=== PATIENT | female | born 1960 | race Caucasian/White ===

== ENCOUNTER 2017-08-04 15:05 | Emergency (ER) | payer OTHER, SELFPAY ==
[2017-08-04 15:37] VITALS: BP 185/110; PULSE 91; RESP 20; TEMP 36.9; O2SAT 97; BMI 34.0
--- NOTE | 2017-08-04 16:14 | HMH.EDUTC ---
[facility] [place] Disposition Clinical Impression: Oral thrush Disposition: Home, Self-Care Condition on Discharge: Good Instructions: DI for Thrush Additional Instructions: Read attached education Mouth rinse as ordered. Lidocaine rinse as needed for pain If no improvement over the next several days or at anytime, worse, follow up immediately Prescriptions: Lidocaine HCl [Lidocaine 2% viscous solution 15mL UDC] 2.5 ml PO QID PRN #60 ml PRN Reason: Mouth Irritation Nystatin [Nystatin Susp 500,000 Units/5mL Udc] 5 ml PO QID #200 ml Referrals: Ernesto Vega MD [Primary Care Provider] - (ANY new or worsening symptom or no improvement over the next 5-7 days AND call tomorrow to schedule follow up to discuss significantly elevated blood pressure. ER for any chest pain, headache, vision changes, weakness.) Time of Disposition: 16:32 Medical Decision Making Vital Signs: 08/04/17 15:37 Temperature 98.4 F Temperature Source Temporal Artery Scan Pulse Rate [Right Radial] 91 H Respiratory Rate 20 Blood Pressure [Right Arm] 185/110 Blood Pressure Mean [Right Arm] 135 Blood Pressure Source [Right Arm] Automatic Cuff Blood Pressure Position [Right Arm] Sitting 02 Sat by Pulse Oximetry 97 Oxygen Delivery Method Room Air - Jeffrey Inquiry Pt receiving controlled substance: No [facility] [place] HPI - General Stated complaint: Tongue hurts Time Seen by Provider: 08/04/17 16:14 Mode of Arrival: Family Vehicle Source of Information: Patient Limitations: No Limitations Description of Symptoms (Recalled from Triage Doc. by RN): PT C/O OF TONGUE SORENESS AND WHITE PATCHES. PT DENIES SORE THROAT OR TONGUE TRAUMA. HEENT Symptoms (Recalled from RN notes): Yes (TONGUE PAIN AND WHITE PATCHES) Resp Symptoms (Recalled from RN notes): No Skin Symptoms (Recalled from RN notes): No MS Symptoms (Recalled from RN notes): No Functional Status (Recalled from RN notes): NA - History of Present Illness Provider Complaint: c/o tongue burning and white patches. First noticed very mild around one mouth ago. Has been slowly getting worse. Thick white covering at times but since brushed aware with toothbrush, wasn't too concerned. The longer it has been present, the more uncomfortable her tongue as become. Now painful to eat. Hasn't taken or tried anything. No one with same symptoms. Denies any changes to medication. No antibiotics or inhalers. Hx of significantly elevated BP. States taking meds. No symptoms. - Related Data Home Medications Medication Instructions Recorded Confirmed Gabapentin [Gabapentin 100mg Cap] 100 mg PO DAILY 08/04/17 08/04/17 Omeprazole [Omeprazole 20mg 20 mg PO DAILY 08/04/17 08/04/17 Capsule] Propranolol HCl [Inderal 40mg 40 mg PO DAILY 08/04/17 08/04/17 Tablet] hydroCHLOROthiazide [HCTZ 25mg 25 mg PO DAILY 08/04/17 08/04/17 tab] Previous Rx's Medication Instructions Recorded Lidocaine HCl [Lidocaine 2% 2.5 ml PO QID PRN #60 ml 08/04/17 viscous solution 15mL UDC] Nystatin [Nystatin Susp 500,000 5 ml PO QID #200 ml 08/04/17 Units/5mL Udc] Allergies Allergy/AdvReac Type Severity Reaction Status Date / Time No Known Allergies Allergy Verified 08/04/17 15:15 - Worker's Comp Is this a Worker's Comp case?: No [facility] History I have reviewed the patient's past medical history: Yes Medical History: Reports:: Depression, Gastroesophageal Reflux Disease(GERD), Hypertension Denies:: Cancer, Diabetes Mellitus Type 1, Diabetes Mellitus Type 2, MRSA Other Medical History: Reports: Other (RLS) Laterality Cases: Bilateral: Tonsillectomy Other Surgeries: Yes: , Other (hysterectomy, pyloris stenosis, small bowel resection, tonsillectomy) Amputation: No - *Social History Smoking Status: Never smoker Alcohol Intake: never - Psychiatric History Expresses thoughts of harming self/others: None Suicide Plan Description: No Plan ROS Obtained: Yes Systems reviewed as appropriate & no additional
[2017-08-04 16:32] VITALS: BP 178/98; PULSE 66; RESP 20; TEMP 37.1; O2SAT 99
== END 2017-08-04 16:37 | disposition home or self-care (01) ==
PROVIDERS: Emergency Provider Nurse Practitioner Family; Family Provider Internal Medicine Adolescent Medicine; PCP Internal Medicine Adolescent Medicine
DX: B37.0 Candidal stomatitis (principal); K21.9 Gastro-esophageal reflux disease without esophagitis; I10 Essential (primary) hypertension; F32.9 Major depressive disorder, single episode, unspecified
CPT/HCPCS: 99201

== ENCOUNTER → 2017-10-03 10:16 | Outpatient (POV) | payer OTHER, SELFPAY | PROVIDERS: Family Provider Internal Medicine Adolescent Medicine; PCP Internal Medicine Adolescent Medicine; Visit Provider Dermatology | DX: Z00.00 Encounter for general adult medical examination without abnormal findings (principal) ==

== ENCOUNTER → 2017-10-30 13:31 | Outpatient (CLI) | payer OTHER, SELFPAY ==
[2017-10-30 15:15] LABS: Ferritin 7 ng/mL (8-388); Phosphorous 3.8 mg/dL (2.4-4.9)
[2017-10-31 08:26] LABS: Iron 68 ug/dL (27-159); Iron Saturation 14 % (15-55); UIBC 405 ug/dL (131-425)
[2017-10-31 14:49] LABS: Vitamin B12 379 pg/mL (232-1245)
== END ==
PROVIDERS: Visit Provider Internal Medicine Adolescent Medicine
DX: G25.81 Restless legs syndrome (principal); K14.0 Glossitis
CPT/HCPCS: 36415; 82607; 82728; 83550; 84100

== ENCOUNTER → 2018-05-06 15:17 | Outpatient (POV) | payer OTHER, SELFPAY | PROVIDERS: Visit Provider Dermatology | DX: Z00.00 Encounter for general adult medical examination without abnormal findings (principal) ==

== ENCOUNTER → 2018-09-26 16:56 | Outpatient (CLI) | payer OTHER, SELFPAY | PROVIDERS: PCP Internal Medicine Adolescent Medicine; Visit Provider Nurse Practitioner Family | DX: Z00.00 Encounter for general adult medical examination without abnormal findings (principal) ==

== ENCOUNTER → 2019-01-06 14:53 | Outpatient (CLI) | payer OTHER, SELFPAY ==
--- NOTE | 2019-01-06 15:10 | XR_ITS ---
XR chest 2V HISTORY: Hypertension ITS.REASON: HTN ORDERING PHYSICIAN: Jose Garcia MD PATIENT AGE: 58 years COMPARISON: 08/28/2016 FINDINGS: The cardiomediastinal silhouette and pulmonary vascularity are within normal limits. The lungs are clear without infiltrates, suspicious nodules, or pleural effusions. Comminuted fracture involves the left humeral head and neck. There is inferior dislocation of left humeral head. IMPRESSION: 1. No acute cardiac or pulmonary findings. 2. Comminuted fracture dislocation of left humeral head and neck
--- NOTE | 2019-01-06 15:10 | XR_ITS ---
EXAM: XR thoracic spine 2V HISTORY: Posttraumatic pain ITS.REASON: S/P FALL , PAIN Comparison: None FINDINGS: Normal alignment. There is a curvilinear lucency through the superior and posterior aspect of T6 possibly due to overlying artifact. Cannot exclude the possibility of a nondisplaced fracture. CT may further specificity if clinically warranted. No other significant anomalies are evident. IMPRESSION: Curvilinear lucency overlying the posterior and superior aspect of T6 which could be due to overlying artifact or nondisplaced fracture
--- NOTE | 2019-01-06 15:10 | XR_ITS ---
EXAM: XR lumbar spine 2-3V HISTORY: ITS.REASON: S/P FALL , PAIN ORDERING PHYSICIAN: Jose Garcia MD PATIENT AGE: 58 years COMPARISON: None FINDINGS: There is mild lumbar curvature convex left. No acute fracture or dislocation is evident. There is anterior angulation of the coccyx which appears old. IMPRESSION: No acute finding
[2019-01-06 15:15] LABS: Basophils % 0.3 % (0.1-2.0); Eosinophils # 0.2 K/mm3 (0.0-0.4); Eosinophils % 2.2 % (0.1-12.0); Hematocrit 36.6 % (37.0-47.0); Hemoglobin 11.1 g/dL (12.2-16.2); Lymphocytes # 1.5 K/mm3 (0.7-4.5); Lymphocytes % 18.6 % (10-50); Mean Corpuscular HGB Conc 30.5 g/dL (31.8-35.4); Mean Corpuscular Hemoglobin 25.5 pg (27.0-31.2); Mean Corpuscular Volume 83.6 fl (81-99); Mean Platelet Volume 9.6 fl (7.4-10.4); Monocytes # 0.5 K/mm3 (0.1-1.0); Monocytes % 6.7 % (1.7-9.3); Neutrophils # 5.7 K/mm3 (1.8-7.8); Neutrophils % 72.2 % (37.0-80.0); Platelet Count 315 K/mm3 (142-424); Red Blood Count 4.37 M/mm3 (4.20-5.40); Red Cell Distribution Width 15.3 % (11.5-17.5); White Blood Count 7.9 K/mm3 (4.8-10.8)
[2019-01-06 16:30] LABS: Anion Gap 10.3 mEq/L (5-15); Blood Urea Nitrogen 7 mg/dL (7-18); Carbon Dioxide 36 mmol/L (21.0-32.0); Chloride 99 mmol/L (98-107); Creatinine,Serum 0.82 mg/dL (0.55-1.02); Estimated Glomerular Filt Rate 72 ml/min (>60); GFR (African American) 87 ML/MIN (>60); Glucose 172 mg/dL (74-106); Potassium 3.3 mmoL/L (3.5-5.1); Sodium 142 mmol/L (136-145)
== END ==
PROVIDERS: PCP Internal Medicine Adolescent Medicine; Visit Provider Orthopaedic Surgery
DX: S42.292A Other displaced fracture of upper end of left humerus, initial encounter for closed fracture (principal)
CPT/HCPCS: 36415; 71046; 72070; 72100; 80048; 85025; 93005

== ENCOUNTER → 2019-01-07 15:29 | Outpatient (CLI) | payer OTHER, SELFPAY ==
--- NOTE | 2019-01-07 15:37 | CT_ITS ---
CT thoracic spine wo con INDICATION: Back pain following injury, possible fracture of T6 on plain films. ITS.REASON: evaluate for fracture; recommended by Dr Muñoz ORDERING PHYSICIAN: Jose Garcia MD PATIENT AGE: 58 years COMPARISON: None TECHNIQUE: Contrast Used: Oral Contrast: Axial images were obtained. Sagittal and coronal reformatted images are reviewed as well. All CT scans at the facility use one or more dose reduction, viz: automated exposure control, ma/kV adjustment per patient size (including targeted exams where dose is matched to indication, i.e. head), or iterative reconstruction technique. FINDINGS: No acute fracture or dislocation. Small marginal osteophytes are present on the right at T T5, T6, T7, and T8. There is osteophytes could have resulted in a mock line on the radiograph causing radiographic abnormality. No lytic or blastic change. No paraspinal mass or other significant anomalies. IMPRESSION: Degenerative changes, no acute fracture
--- NOTE | 2019-01-07 15:37 | XR_ITS ---
XR shoulder LT min 2V HISTORY: Follow-up fracture ITS.REASON: ap axillary views ORDERING PHYSICIAN: Jose Garcia MD PATIENT AGE: 58 years Comparison: 01/01/2019 FINDINGS: Comminuted and impacted fracture of the humeral head and neck once again noted with mild impaction of the humeral neck fracture fragments and mild displacement of the greater tuberosity. Previous chest x-ray showed subluxation of the left humeral head which is less apparent on today's exam. No evidence of dislocation. Axillary view is unremarkable. IMPRESSION: No change in the left humeral head and neck fracture. No evidence of dislocation.
== END ==
PROVIDERS: PCP Internal Medicine Adolescent Medicine; Visit Provider Orthopaedic Surgery
DX: S42.292A Other displaced fracture of upper end of left humerus, initial encounter for closed fracture (principal); M54.6 Pain in thoracic spine
CPT/HCPCS: 72128; 73030

== ENCOUNTER 2019-01-08 08:48 | Observation (INO) ==
--- NOTE | 2019-01-08 13:26 | Progress Note ---
[facility] Anesthesia Checklist - Patient Identification Patient Identification: Arm Band, Verbal (Name & ) - Structural Data Admitted From: Home Planned Operative Procedure/s: Left Shoulder ORIF Consent for Planned Operative Procedure(s) Verified: Yes Verified Documents: Surgical Consent, History and Physical - NPO Status Verified Time NPO: 21:30 - Chart Verification Results Verified: CBC, BMP - Additional verifications Anesthesia Reactions: No - Airway Assessment C-Spine Mobility Assessed: Yes TMJ Mobility Assessed: Yes Dentition: Poor Dentition (Missing teeth) - Neurological Assessment Level of Consciousness: Awake, Alert, Appropriate, Follows Commands Hx Seizures: No Numbness or tingling in extremities: No - Anesthesia Plan Anesthesia Risk discussed: Yes Anesthesia Plan: Verified ASA Class: III Anesthesia Type: General (With left ISB) [facility] History I have reviewed the patient's past medical history: Yes Medical History: Reports:: Depression, Gastroesophageal Reflux Disease(GERD), Hypertension Denies:: Cancer, Diabetes Mellitus Type 1, Diabetes Mellitus Type 2, Internal Pacemaker, Lung Disease, MRSA, Seizures *Have you ever received a pneumonia vaccine?: No *Have you received a flu vaccine this season?: Yes Other Medical History: Reports: Other. Denies: Blood Transfusion Reaction Comment:: Crohn's Laterality Cases: Bilateral: Tonsillectomy Other Surgeries: Yes: Colonoscopy, , Hysterectomy-Total, Hysterectomy- Partial, Other (hysterectomy, pyloris stenosis, small bowel resection, tonsillectomy). No: Pacemaker Amputation: No Fractures: No - *Social History Educational Level: Completed GED/General Educational Development Smoking Status: Never smoker Alcohol Intake: never Substance Use Type: former substance user Last Used Substance: unknown *Occupational Status:: employed Housing: house Household Members: spouse *Travel in the last 8 weeks: None - Psychiatric History Pschychiatric History:: Reports:: Depression Family Hx:: Other, Adopted
--- NOTE | 2019-01-08 20:15 | Progress Note ---
[facility] Anesthesia Record Part I Intake, IV Amount: 2,800 Estimated blood loss (mL): 250 Urine output (mL): 600 Blood Pressure: 155/90 SaO2: 96 Pulse Rate: 95 Respiratory Rate: 12 Temperature: 98 F Patient is:: Awake, Stable Stable to PACU at:: 20:10
--- NOTE | 2019-01-08 20:15 | Progress Note ---
[facility] Anesthesia Record Part II Discharge Time: 20:40 Destination: floor PACU nurse assessment reviewed?: Yes Patient Condition:: Good Anesthesia Complications:: None Swallowing reflex intact?: Yes Cyanosis?: No
--- NOTE | 2019-01-08 20:52 | Operative Note ---
Date of procedure: 01/08/19 Pre-op Diagnosis:: Closed valgus impacted 4 part proximal humerus fracture, left Post-op Diagnosis:: Same Procedure performed:: Open reduction internal fixation proximal humerus fracture, left Surgeon:: Jose Garcia MD BALLAST REGULATOR OPERATOR:: Rogers Farah Anesthesia: GETA, regional (Interscalene block) Estimated blood loss (mL): 250 Clinical Note:: Patient is a 58-year-old angfn-moyl-ceepewyb female, who sustained a closed, comminuted and displaced valgus impacted 4 part proximal humerus fracture after she tripped and fell about 1 week ago. Following evaluation in the office, including CT scan with 3-D reconstruction, the management options were discussed with the patient and her sister in detail. Given the fracture pattern with displacement and deformity, an open reduction and internal fixation is indicated to relieve pain and improve function. Following a detailed discussion about the management options including both nonsurgical and surgical, she and her family elected for an open reduction and internal fixation of the proximal humerus fracture with a locking plate. I have discussed the details of the procedure, risks and benefits and alternatives at length. Please refer to my office note for full details. Operative findings:: Comminuted and displaced valgus impacted 4 part fracture of the proximal humerus as noted on the preoperative imaging. Fracture was reduced satisfactorily and stabilized with a 3 hold proximal humerus locking plate and screws. ignificant void was noted in the humeral head from impaction after reducing and fixing the fracture.The gap at the fracture site was filled with Hydroset synthetic bone graft substitute. Operative note:: On the day of surgery the patient and her family met in the preoperative area and positively identified. I have again discussed the injury, management options including both nonsurgical and surgical. She opted to proceed with surgical remediation. I have discussed the details of the procedure, risks and benefits and alternatives. Risks of surgery discussed include but are not limited to- infection, bleeding, injury to nerves, tendons and blood vessels, bleeding, primary/secondary screw perforation of the humeral head, subacromial impingement, nerve injury/ palsy especially the axillary nerve, avascular necrosis of humeral head, incisional scar (cosmesis), DVT/PE, malunion, nonunion/delayed union, refracture, shoulder/elbow stiffness, persistent pain, CRPS (complex regional pain syndrome- pain, sensory and temperature changes, swelling and stiffness), painful/prominent hardware, loss of fixation/hardware failure, incomplete relief of pain, incomplete return of function, and likely need for further surgery in future and also the risks of anesthesia including heart attack, stroke, and even . We've discussed how there is a small but real possibility of loss of use of the arm, loss of the limb or loss of life itself. We've also explained how additional surgery may be required if there are any complications or the fracture fails to heal. We explained the postoperative pain management, recovery and rehabilitation, immobilization required, the need for physical therapy, the possibility of stiffness or arthrofibrosis, chronic pain and we've also discussed the option of nonsurgical treatment. We also discussed about possible need for bone grafting including use of synthetic bone graft substitutes. We discussed about possible autologous bone harvesting sites including her iliac crest and middle third of fibula. We've outlined where the incision will be on the skin. A physical exam was performed and documented. The limb was marked and initialed by me. Consent form was reviewed and signed. Patient understood the risks, agreed to proceed with surgery, signed the consent form and no guarantees or assurances were given or implied. The patient was brought to the operating room, a general anesthesia and interscalene block was administered by the anesthesia team. She was placed in the supine position on the fracture table and all bony prominences were well- padded. Her upper body was slightly moved towards the each of the bed to facilitate C-arm visualization of the left shoulder. The C-arm was brought from the top and the fracture was screened under fluoroscopic guidance in multiple planes. The LEFT upper extremity was then prepped and draped in the usual sterile fashion. Administration of prophylactic antibiotics was confirmed with the anesthesia team. A preprocedure timeout was performed as per the hospital protocol. An anterolateral acromial approach was planned for the proximal humerus fixation. The bony landmarks of the shoulder were marked with a skin ma rker and the location of the axillary nerve was marked on the skin at about 6 cm from the acromial edge. Then the skin incision was made starting at the anterolateral edge of the acromion and extending distally just proximal to the deltoid insertion. The dissection was carried through the subcutaneous tissue down to the deltoid muscle. The anterior raphae of the deltoid was identified and the muscle was split in line with the fibers. A wad of muscle tissue was left as a bridge at the level of the axillary nerve to protect the nerve from injury. The axillary nerve was tagged with a vessel loop and kept out of harm's way throughout the rest of the procedure. The muscle was again split below the level of the nerve. This gave us a very good exposure to the proximal humerus. Then the subdeltoid and subacromial bursa was excised exposing the rotator cuff and proximal humerus. Then the biceps tendon was identified in the groove and protected throughout. Stay sutures were placed through the subscapularis, supraspinatus and infraspinatus tendons near their insertion with #2 FiberWire sutures. The articular fragment was noted to be in valgus position and impacted into the distal fragment. Then the fracture line was identified and dis- impacted with an elevator. The tuberosities were pulled over the with the attached stay sutures and the fracture was reduced anatomically. The fracture was then provisionally fixed in position with K wires. Then a 3 holed Radha proximal humerus locking plate was selected and slid along the lateral border of the proximal humerus under the axillary nerve. The nerve was carefully protected throughout the procedure. The plate was then provisionally fixed to the distal fragment with a cancellus screw through the oval hole (cancellous screw was util ized has multiple attempts to fix the plate to the bone with a cortical screw were unsuccessful). Then the humeral head was reduced back onto the plate under fluoroscopic guidance and provisionally fixed with K wires. After confirming satisfactory reduction and provisional fixation under fluoroscopic guidance in multiple planes we proceeded with definitive fixation. Using the angle guides multiple locking screws were placed into the humeral head sequentially from proximal to distal. After this the distal fixation of the plate to the humeral shaft was completed with 2 more cortical screws. This gave us a very stable construct. This was screened under fluoroscopic guidance in multiple planes and we made sure that none of the screws were penetrating through the humeral head. Then the previously placed sutures through the rotator cuff tendons were passed through the suture holes in the plate and tied securely providing a very good hybrid fixation. After this, through the central hole in the plate 10 mL of Hydroset synthetic bone graft was injected into the fracture site. We screened the construct under image intensifier and noted that overall a very satisfactory reduction was obtained and stable fixation was performed. Fluoroscopic images were obtained and stored digitally. The wound was then thoroughly irrigated with normal saline. Hemostasis was obtained with diathermy cautery. The wound was then closed in layers with 2-0 Vicryl, 2-0 Vicryl and 4-0 subcuticular Monocryl sutures, Dermabond and Steri-Strips to the skin. Sterile dressings were applied. The arm was then placed in an arm sling. The patient was then reversed from the anesthetic and transferred onto the bed. She was then transferred to the postoperative recovery area in a stable condition. She tolerated the procedure well and there were no immediate complications. At the end of the procedure swab, needle and instrument counts were correct according to the scrub team. Postoperatively patient was admitted for observation, analgesia and two further doses of postoperative antibiotics. Implants: Radha AxSOS 3 Titanium Locking Plate and screws- 3 holed plate and multiple locking and nonlocking screws used. 10 mL of Hydrocet synthetic bone substitute used to fill the defect in the humeral head. Industry assisted sales representative: Yobani Hall from [employer] Condition: stable Disposition: PACU Specimens:: None Complications:: None
--- NOTE | 2019-01-08 22:02 | Progress Note ---
Subjective Date: 01/08/19 Time: 21:45 Principal diagnosis: Status post ORIF proximal humerus fracture, left Interval history: Patient is status post ORIF LEFT proximal humerus fracture post op day #0. Postoperatively she was admitted for observation given the time of the day and relatively long surgical procedure. Patient is lying down in bed. She says she is having some difficulty breathing. No history of any cough, chest pain or palpitations. She reports no pain or discomfort at the surgical site. She had interscalene nerve blocks prior to surgery on the left upper is paralyzed and numb. No history of any nausea or vomiting. PN: Obj Ex Vital signs: Temp Pulse Resp BP Pulse Ox 98.0 F 100 H 16 146/84 H 92 L 01/08/19 20:40 01/08/19 20:40 01/08/19 20:40 01/08/19 20:40 01/08/19 20:40 Narrative: Laboratory Results - last 24 hr 01/08/19 14:55: Urine Color Yellow, Urine Appearance Clear, Urine pH 6.5, Ur Specific [place] 1.020, Urine Protein Negative, Urine Glucose (UA) Negative, Urine Ketones Negative, Urine Blood Negative, Urine Nitrate Negative, Urine Bilirubin Negative, Urine Urobilinogen 1.0, Ur Leukocyte Esterase Negative, Urin e RBC Occasional, Urine Bacteria Trace Exam General appearance: alert, active, awake, no acute distress Cardiovascular: regular rate & rhythm, normal peripheral pulses Respiratory: Clear to auscultation, normal breath sounds ABD: soft and non tender Neuro: alert, awake, oriented x 3 On examination of the left upper extremity, she is in an arm sling. The surgical dressings over the left shoulder are clean dry and intact. Distal pulses are 2+ and capillary refill is brisk. She has numbness over the left arm and is not able to mobilize the arm secondary to the nerve blocks. Progress Note: A&P (1) Fracture of proximal humerus Status: Acute Current Visit: Yes Assessment and Plan for All Diagnoses:: I have reviewed the clinical and operative findings and procedure performed with the patient and family. Postoperatively she is complaining of difficulty breathing. Ordered urgent check x-ray and EKG for further evaluation. Also requested an urgent medical consult. Continue arm sling, regular icing, as needed pain medication and to more dose of prophylactic IV antibiotics. C ontinue strict nonweightbearing on the left upper extremity.
[2019-01-09 06:42] LABS: Basophils % 0.1 % (0.1-2.0); Hematocrit 31.7 % (37.0-47.0); Hemoglobin 9.5 g/dL (12.2-16.2); Lymphocytes # 0.8 K/mm3 (0.7-4.5); Lymphocytes % 6.1 % (10-50); Mean Corpuscular HGB Conc 29.8 g/dL (31.8-35.4); Mean Corpuscular Volume 81.5 fl (81-99); Mean Platelet Volume 7.9 fl (7.4-10.4); Monocytes # 0.5 K/mm3 (0.1-1.0); Monocytes % 3.3 % (1.7-9.3); Neutrophils # 12.3 K/mm3 (1.8-7.8); Neutrophils % 90.6 % (37.0-80.0); Platelet Count 304 K/mm3 (142-424); Red Cell Distribution Width 15.2 % (11.5-17.5); White Blood Count 13.6 K/mm3 (4.8-10.8)
[2019-01-09 06:51] LABS: Calcium 8.6 mg/dL (8.5-10.1)
[2019-01-09 10:04] LABS: Hypochromasia 1+; Lymphocytes % 4 % (10-50); Monocytes % 1 % (2-9); Neutrophils % 91 % (42-76); Total Cells Counted 100
--- NOTE | 2019-01-09 10:26 | Progress Note ---
Subjective Date: 01/09/19 Time: 09:30 Principal diagnosis: Status post ORIF proximal humerus fracture, left PN: Obj Ex Vital signs: Temp Pulse Resp BP Pulse Ox 97.9 F 80 18 170/77 H 95 01/09/19 08:00 01/09/19 08:00 01/09/19 08:00 01/09/19 08:00 01/09/19 08:00 Narrative: Laboratory Results - last 24 hr 01/08/19 14:55: Urine Color Yellow, Urine Appearance Clear, Urine pH 6.5, Ur Specific [place] 1.020, Urine Protein Negative, Urine Glucose (UA) Negative, Urine Ketones Negative, Urine Blood Negative, Urine Nitrate Negative, Urine Bilirubin Negative, Urine Urobilinogen 1.0, Ur Leukocyte Esterase Negative, Urine RBC Occasional, Urine Bacteria Trace 01/09/19 05:10: WBC 13.6 H D, RBC 3.90 L, Hgb 9.5 L, Hct 31.7 L, MCV 81.5, MCH 24.3 L, MCHC 29.8 L, RDW 15.2, Plt Count 304, MPV 7.9, Neut % (Auto) 90.6 H, Lymph % (Auto) 6.1 L, [place] % (Auto) 3.3, Eos % (Auto) 0.0 L, Baso % (Auto) 0.1, Neut # (Auto) 12.3 H, Lymph # (Auto) 0.8, [place] # (Auto) 0.5, Eos # (Auto) 0.0, Baso # (Auto) 0.0, Total Counted 100, Neutrophils % (Manual) 91 H, Band Neutrophils % 4.0, Lymphocytes % (Manual) 4 L, Monocytes % (Manual) 1 L, Platelet Estimate Normal, Hypochromasia 1+, Microcytosis 1+ 01/09/19 05:10: Sodium 141, Potassium 3.0 L, Chloride 101, Carbon Dioxide 33 H, Anion Gap 10.0, BUN 12 D, Creatinine 1.05 H D, Estimated Creat Clear 81, Estimated GFR 54 L, Est GFR ( Amer) 66 D, Glucose 170 H, Calcium 8.6 Progress Note: A&P (1) Fracture of proximal humerus Status: Acute Current Visit: Yes
== END 2019-01-09 13:00 | disposition home or self-care (01) ==
LOC: 2ND 08:48 → OR 08:48
PROVIDERS: ADMIT Orthopaedic Surgery; ATTEND Orthopaedic Surgery
CPT/HCPCS: 36415; 71010; 71045; 73060; 80048; 81001; 85007; 85025; 93005; 96374; C1713; C1776; G0378; J0131; J2405

== ENCOUNTER → 2019-01-20 16:40 | Outpatient (CLI) | payer OTHER, SELFPAY ==
--- NOTE | 2019-01-20 16:46 | XR_ITS ---
XR shoulder LT min 2V HISTORY: ITS.REASON: sp ORIF LT humerus ORDERING PHYSICIAN: Jose Garcia MD PATIENT AGE: 58 years Comparison: 01/07/2019. FINDINGS: There is now a compression plate with fixation screws traversing the comminuted fracture involving the greater tubercle and surgical neck of the proximal left humerus. There is anatomic alignment on this study. There is some radiopaque material over the medullary portion of the proximal humerus as well as adjacent soft tissues which is likely related to the material utilized for the fixation procedure. The glenohumeral and acromioclavicular joints and alignment are normal. Impression: Postoperative findings as described.
== END ==
PROVIDERS: PCP Internal Medicine Adolescent Medicine; Visit Provider Orthopaedic Surgery
DX: S42.292A Other displaced fracture of upper end of left humerus, initial encounter for closed fracture (principal); Z48.89 Encounter for other specified surgical aftercare
CPT/HCPCS: 73030

== ENCOUNTER → 2019-02-03 12:17 | Outpatient (CLI) | payer OTHER, SELFPAY ==
--- NOTE | 2019-02-03 12:19 | XR_ITS ---
XR shoulder LT min 2V HISTORY: Follow-up ORIF/fracture ITS.REASON: sp orif lt humerus ORDERING PHYSICIAN: Jose Garcia MD PATIENT AGE: 58 years Comparison: 01/20/2019 FINDINGS: Status post ORIF left humeral fracture with sideplate and multiple screws along with persistent radio opaque material some of which appears to be within the joint space posterior to the humeral head which may represent bone cement. Good alignment of the fracture fragments. IMPRESSION: No change status post ORIF left humeral neck fracture
--- NOTE | 2019-03-05 14:42 | HMH.OPNOTE ---
Date of procedure: 01/29/19 Pre-op Diagnosis:: Hematuria Post-op Diagnosis:: Same Procedure performed:: Bedside cystoscopy Surgeon:: Antonio Newby MD Anesthesia: local Estimated blood loss (mL): 0 Clinical Note:: This is a 58-year-old white female who came to the emergency room yesterday with complaints of gross hematuria. She has a history of multiple sclerosis and requires straight cath every 6 hours due to a neurogenic bladder. She states she has had gross hemat[facility] Her urinalysis on admission was suspicious for urinary tract infection. CT scan had shown a possible nodule along one wall of the bladder. Review of the CTs reveals some hyperdense material in the bladder lumen suggestive of clot. Operative findings:: Since small clots were noted in the bladder these were irrigated free. There is no evidence of any bladder tumors or mucosal abnormalities. Operative note:: At the bedside patient was prepped and draped in the standard surgical fashion. Ashton catheter was removed prior to prepping and draping. 2% lidocaine placed into the urethral meatus and a 16 Serbian cystoscope passed into the urethral meatus and into the bladder. There was some small clots noted in the bladder. There was no evidence of mucosal abnormalities, bladder tumors, stones or diverticula. Scope removed and patient tolerated the procedure well. Condition: stable Disposition: no change (cysto done at bedside and pt tolerated well.) Specimens:: None Complications:: None
== END ==
PROVIDERS: PCP Internal Medicine Adolescent Medicine; Visit Provider Orthopaedic Surgery
DX: S42.292A Other displaced fracture of upper end of left humerus, initial encounter for closed fracture (principal); Z48.89 Encounter for other specified surgical aftercare
CPT/HCPCS: 73030

== ENCOUNTER → 2019-02-10 10:29 | Outpatient (CLI) | payer OTHER, SELFPAY ==
--- NOTE | 2019-02-10 10:30 | XR_ITS ---
PROCEDURE: XR DEXA AXIAL SKELETON CLINICAL INDICATION: evaluate for osteoporosis COMPARISON: No exams were available for comparison FINDINGS: L1-L4 density is 1.002 grams/centimeters sq with a T-score -1.5. Lowest hip densities in the left femoral neck at 0.780 grams/centimeters squared with T-score -1.9. This is consistent with osteopenia with moderate fracture risk. IMPRESSION: Osteopenia with moderate fracture risk. Treatment is advised. Suggest follow-up exam January 2021 Dictated by: Jarrett Muñoz MD 02/11/2019 06:03 Signed by: <Electronically signed by Jarrett Muñoz MD in [place]> 02/11/2019 06:03
== END ==
PROVIDERS: PCP Internal Medicine Adolescent Medicine; Visit Provider Orthopaedic Surgery
DX: S42.202A Unspecified fracture of upper end of left humerus, initial encounter for closed fracture (principal); M85.89 Other specified disorders of bone density and structure, multiple sites
CPT/HCPCS: 77080

== ENCOUNTER → 2019-03-04 08:29 | Outpatient (CLI) | payer OTHER, SELFPAY ==
--- NOTE | 2019-03-04 08:31 | XR_ITS ---
PROCEDURE: XR SHOULDER LT MIN 2V CLINICAL INDICATION: sp orif left humerus, dos 01/08/19 COMPARISON: from 01/20/2019 FINDINGS: Status post ORIF left proximal humeral fracture. There remains good alignment. Hyperdense material noted along the proximal humerus and may be due to antibiotic beads or extruded methylmethacrylate. Hyperdensity also noted within the shoulder joint posteriorly as before. IMPRESSION: No change status post ORIF left humeral fracture as described above Dictated by: Jarrett Muñoz MD 03/04/2019 09:38 Signed by: <Electronically signed by Jarrett Muñoz MD in [place]> 03/04/2019 09:38
== END ==
PROVIDERS: PCP Internal Medicine Adolescent Medicine; Visit Provider Orthopaedic Surgery
DX: Z48.89 Encounter for other specified surgical aftercare (principal); M25.512 Pain in left shoulder
CPT/HCPCS: 73030

== ENCOUNTER → 2019-04-08 08:47 | Outpatient (CLI) | payer OTHER, SELFPAY ==
[2019-04-08 11:08] LABS: Anion Gap 15.5 mEq/L (5-15); Blood Urea Nitrogen 12 mg/dL (7-18); Calcium 8.8 mg/dL (8.5-10.1); Carbon Dioxide 25 mmol/L (21.0-32.0); Chloride 103 mmol/L (98-107); Creatinine,Serum 0.84 mg/dL (0.55-1.02); Estimated Glomerular Filt Rate 70 ml/min (>60); GFR (African American) 85 ML/MIN (>60); Glucose 180 mg/dL (74-106); Potassium 3.5 mmoL/L (3.5-5.1); Sodium 140 mmol/L (136-145)
== END ==
PROVIDERS: Visit Provider Internal Medicine Adolescent Medicine
DX: I10 Essential (primary) hypertension (principal)
CPT/HCPCS: 36415; 80048

== ENCOUNTER → 2019-04-14 14:57 | Outpatient (CLI) | payer OTHER, SELFPAY ==
--- NOTE | 2019-04-14 15:08 | XR_ITS ---
PROCEDURE: XR SHOULDER LT MIN 2V CLINICAL INDICATION: sp orif lt proximal humerus dos 01/08/19 Pain COMPARISON: [id number] XR shoulder LT min 2V from 01/01/2019 XR SHOULDER LT MIN 2V from 03/04/2019 FINDINGS: Status post ORIF left humeral neck fracture is previously described with lateral bone plate with good alignment. Extruded bone cement noted posterior to the humeral head as before. IMPRESSION: No change good alignment left humeral neck fracture status post ORIF Dictated by: Jarrett Muñoz MD 04/14/2019 15:49 Electronically signed by Jarrett Muñoz MD in [place] 04/14/2019 15:49
== END ==
PROVIDERS: PCP Internal Medicine Adolescent Medicine; Visit Provider Orthopaedic Surgery
DX: Z09 Encounter for follow-up examination after completed treatment for conditions other than malignant neoplasm (principal); S42.292D Other displaced fracture of upper end of left humerus, subsequent encounter for fracture with routine healing
CPT/HCPCS: 73030

== ENCOUNTER 2019-04-16 08:00 | Outpatient (RCR) | payer OTHER, SELFPAY ==
--- NOTE | 2019-03-24 16:20 | HMH.PTOPEV ---
PT Outpatient Evaluation Rehab PT Outpatient Evaluation Start: 03/24/19 15:33 Freq: Status: Active Protocol: Document 03/24/19 15:33 JASON (Rec: 03/24/19 16:20 JASON [id number]) Electronically Signed By Akhil Haas, PT 03/24/19 15:33 Outpatient Therapy Subjective History Subjective History Pt reports chronic L sided neck pain since fx'ing L SH/ humeral head on 01/01/19, sx. ORIF on 01/08. Pt reports increased neck and cervicogenic BRUNNER's over the last ~3-4 weeks due to mm guarding in an effort to protect injured SH. Pt currently being seen by [facility] OT for L SH sx. recovery/rehab. Chief Complaint Pain,Spasms,Stiff Symptom Type Ache,Sharp,Dull Symptoms Relieved By Rest/Positioning,Heat Symptoms Aggravated By Sitting Prior Functional Limitations Desk Work/Reading,Driving Current Functional Limitations Desk Work/Reading,Driving Symptom Description Constant but Variable Level of pain today (0-10) 4 Pain scale - at its best (0-10) 3 Pain scale - at its worst (0-10) 8 Cervical Eval Palpation Cervical Muscles L Cervical Paraspinal,L Suboccipital,L CT Junction,L Upper Trapezius Cervical/Thoracic Palpation Findings Tenderness,Trigger Point, Muscle Guarding Posture Head/C-Spine Posture Sitting Position Flexed Head/C-Spine Posture Standing Position Flexed Flexibility Deficits Upper Trapezius Muscle Length (L) Moderate Tightness Levaetor Scapulae Muscle Length (L) Mild Tightness Scalene Group Muscle Length (L) Moderate Tightness Passive Joint Mobility Cervical PIVM WNL: R OA L OA R AA L AA R C2/3 L C2/3 R C3/4 L C3/4 R C4/5 L C4/5 R C5/6 L C5/6 R C6/7 L C6/7 R C7/T1 L C7/T1 AROM Cervical Spine Extension Active Range of 0-35 Motion (degrees) Cervical Spine Flexion Active Range of 0-60 Motion (degrees) Cervical Spine Rig
== END 2019-04-16 08:05 | disposition home or self-care (01) ==
LOC: PT 08:00
PROVIDERS: PCP Internal Medicine Adolescent Medicine; Visit Provider Internal Medicine Adolescent Medicine
DX: S46.812A Strain of other muscles, fascia and tendons at shoulder and upper arm level, left arm, initial encounter (principal)
CPT/HCPCS: 97010; 97014; 97035; 97110; 97140; 97163; G0283

== ENCOUNTER → 2019-04-16 14:33 | Outpatient (CLI) | payer OTHER, SELFPAY | PROVIDERS: PCP Internal Medicine Adolescent Medicine; Visit Provider Internal Medicine Adolescent Medicine | DX: R00.2 Palpitations (principal); R06.02 Shortness of breath | CPT/HCPCS: 93225; 93226 ==

== ENCOUNTER 2019-05-07 15:30 | Outpatient (RCR) | payer OTHER, SELFPAY ==
--- NOTE | 2019-02-09 15:30 | HMH.OTOPEV ---
OT Inpatient Evaluation Rehab OT Outpatient Eval Start: 02/09/19 15:18 Freq: Status: Active Protocol: Document 02/09/19 15:18 RMARSHALL (Rec: 02/09/19 15:30 RMARSHALL [id number]) Electronically Signed By Aimee Lloyd OT 02/09/19 15:18 Outpatient Therapy Subjective History Subjective History Pt is a 58 year old female who reports to therapy for initial evaluation to left shoulder. Pt is currently s/p ORIF left proximal humerus fx (01/08/19). Pt originally injured herself on January 01 after a fall. Pt demonstrates with significant decreased AROM/PROM. Pt will continue to be seen in order to address all deficits. Chief Complaint Pain,Stiff,Weakness Symptom Type Ache,Throb,Sharp Symptoms Relieved By Nothing Symptoms Aggravated By Physical Activity,Lifting Prior Functional Limitations None Current Functional Limitations Reaching,Lifting,Housework, Dressing,Desk Work/Reading, Driving,Sleeping,Recreation Activity Symptom Description Constant but Variable Level of pain today (0-10) 6 Pain scale - at its best (0-10) 3 Pain scale - at its worst (0-10) 6 Shoulder/Elbow Eval Shoulder Objective Measurements Shoulder ROM Left Shoulder ROM Limitations Pain Shoulder Abduction Active Range of 57 degrees Motion (degrees) Shoulder Abduction Passive Range of 100 degrees Motion (degrees) Shoulder Flexion Active Range of Motion 55 degrees (degrees) Query Text: Shoulder Flexion Passive Range of Motion 110 degrees (degrees) Shoulder External Rotation Active Range 0 degrees of Motion (degrees) Shoulder External Rotation Passive Range 20 degrees of Motion (degrees) Shoulder Internal Rotation Active Range 0 degrees of Motion (degrees) Shoulder Internal Rotation Passive Range 30 degrees of Motion (degrees) pain with active ROM shoulder exam left standard pain with passive ROM shoulder exam left standard decreased ROM shoulder exam standard left full ROM shoulder exam standard right Shoulder MMT Shoulder Abduction Strength Grade 3 Fair Shoulder Extension Strength Grade 3 Fair Shoulder Flexion Strength Grade 3 Fair Shoulder External Rotation Strength 3 Fair Grade Should
--- NOTE | 2019-03-10 15:35 | HMH.RHREAS ---
Rehab Reassessment Rehab OP Re-assessment Start: 03/10/19 14:24 Freq: Status: Active Protocol: Document 03/10/19 14:24 CARINA (Rec: 03/10/19 15:35 RMTRISHL [id number]) Electronically Signed By Aimee Lloyd OT 03/10/19 14:24 Rehab Re-assessment Objective Objective Notes Pt continues to be seen twice a week in order to engage in left shoulder AROM/AAROM exercises. Pt also receives PROM manual stretching to left shoulder while supine on mat. Modalities are provided in order to decrease pain/ inflammation. Assessment Progress Assessment Progressing as Expected Assessment Notes Pt has demonstrated improved in both PROM and AROM. Pt does still have pain with extensive use of the arm, but is now out of her sling and incoorporating her arm in everyday activities. Current AROM left shoulder Flex: 115 degrees Abd: 100 degrees ER: 45 degrees IR: 40 degrees Patient goals met N/A at this time Goals Not Met STG and LTG Revised Goals Continue progressing towards initial short term and usp goals written on initial evaluation Plan Plan Continue with OT plan of care at this time. Frequency of Therapy 2x's a week Duration of therapy 6 more weeks Time and Billing Re-Eval Time 15 Re-Eval Billing Units 1 PHYSICIAN CERTIFICATION: I certify the specified therapy services for Keyana Escamilla are required, authorized, and reviewed every 30 days.
--- NOTE | 2019-04-29 10:23 | HMH.RHREAS ---
Rehab Reassessment Rehab OP Re-assessment Start: 03/10/19 14:24 Freq: Status: Active Protocol: Document 04/29/19 10:14 CARINA (Rec: 04/29/19 10:23 [facility] [id number][facility] Electronically Signed By Aimee Lloyd OT 04/29/19 10:14 Rehab Re-assessment Subjective Subjective It is doing good. Objective Objective Notes Pt continues to be seen once a week in order to engage in left shoulder AROM/AAROM exercises. Pt also receives PROM manual stretching to left shoulder while supine on mat. Modalities are provided in order to decrease pain/ inflammation. Assessment Progress Assessment Progressing as Expected Assessment Notes Pt has demonstrated improved in both PROM and AROM. Pt is not having as much pain during use of arm. AROM has improved significantly since last reassessment. Pt claims she is able to complete all ADL activities. Current AROM left shoulder Flex: 148 degrees Abd: 125 degrees ER: 80 degrees IR: 65 degrees Patient goals met Short term goals have been met . Goals Not Met LTG Revised Goals Continue progressing towards jail goals written on initial evaluation Plan Plan Continue with OT plan of care at this time. Frequency of Therapy 2x's a week Duration of therapy 6 more weeks Time and Billing Re-Eval Time 15 Re-Eval Billing Units 1 PHYSICIAN CERTIFICATION: I certify the specified therapy services for Keyana Escamilla are required, authorized, and reviewed every 30 days.
== END 2019-05-07 15:35 | disposition home or self-care (01) ==
LOC: OT 15:30
PROVIDERS: PCP Internal Medicine Adolescent Medicine; Visit Provider Orthopaedic Surgery
DX: S42.292D Other displaced fracture of upper end of left humerus, subsequent encounter for fracture with routine healing (principal)
CPT/HCPCS: 97014; 97110; 97140; 97164; 97166; G0283

== ENCOUNTER → 2019-06-05 12:43 | Outpatient (CLI) | payer OTHER, SELFPAY ==
--- NOTE | 2019-06-05 12:45 | CT_ITS ---
PROCEDURE: CT SHOULDER LT WO/W CON CLINICAL HISTORY: CT arthrogram w/ pre post contrast imaging Prior ORIF left humeral fracture. Re-injury with pain COMPARISON: XR SHOULDER LT MIN 2V from 04/14/2019 XR SHOULDER LT MIN 2V from 05/27/2019 TECHNIQUE: The study is performed without and with intra-articular contrast. Axial images obtained with sagittal and coronal reformats. All CT scans at the facility use one or more dose reduction, viz: automated exposure control, ma/kV adjustment per patient size (including targeted exams where dose is matched to indication, i.e. head), or iterative reconstruction technique. FINDINGS: Exam performed without contrast demonstrates add bone plate along the proximal aspect of the humerus with multiple screws and mild degree of artifact. There is hyperdense material noted medial to the shoulder joint corresponding to the lobular area of increased density noted on the radiograph which may represent extruded bone cement. There are 2 small lobular areas of hyperdensity noted along the medial and inferior aspect of the glenohumeral joint. These are not within the joint space. There are mild osteoarthritic changes of the glenohumeral joint. There is some increased soft tissue density inferior to the glenohumeral joint which may represent some postsurgical change or inflammation. Post arthrographic images are obtained. The previously described hyperdensities along the medial aspect of the joint space are contiguous with the joint capsule and surrounded by contrast on the post enhanced images indicating that they are within the joint capsule but not within the joint space. In addition there are multiple small hyperdense foci inferior to the shoulder joint some of which are also at outlined by contrast on the post enhanced images. Some of these are felt to be within the capsule and some may be due to heterotopic ossification. There is no evidence of rotator cuff tear.. No evidence of labral tear. Bicipital tendon is in place. IMPRESSION: 1. No evidence of rotator cuff tear or labral tear with bicipital tendon in place. 2. The lobular calcific material present in the anterior aspect of the shoulder is within the joint capsule but not within the joint space. Some of the calcific debris along the inferior aspect of the shoulder joint is within the joint capsule and appears outside of the capsule. None are evident within the joint space. 3. Postsurgical changes Dictated by: Jarrett Muñoz MD 06/05/2019 13:57 Electronically signed by Jarrett Muñoz MD in [place] 06/08/2019 14:40
--- NOTE | 2019-06-05 12:45 | IR_ITS ---
PROCEDURE: IR ARTHROGRAM SHOULDER LT CLINICAL INDICATION: CT arthrogram with pre post contrast imaging Left shoulder pain, prior injury with ORIF now with increasing pain COMPARISON: XR SHOULDER LT MIN 2V from 05/27/2019 FINDINGS: Following obtaining informed consent and time-out procedure under aseptic conditions with local anesthesia with 1 percent buffered lidocaine using fluoroscopic guidance, a 20 gauge spinal needle was inserted into the left shoulder joint via the anterior approach. Approximately 12 cc of a one-to-one mixture Optiray 320 and lidocaine was injected into the joint. Overhead images were obtained internal and external rotation. There is no evidence of rotator cuff tear. The previously noted calcified foreign bodies along the left shoulder joint did appear to be outlined by contrast indicating intra-articular location. The calcific densities along the inferior aspect the joint also appear to be outlined by contrast. Proximal lateral bone plate is present with good alignment. The patient tolerated the procedure well without evidence of immediate complication and then sent to the CT suite for CT arthrography images. IMPRESSION: Calcific densities noted on the plain radiograph 05/27/2019 appear to lie within the joint space. No evidence of rotator cuff tear. Dictated by: Jarrett Muñoz MD 06/06/2019 06:39 Electronically signed by Jarrett Muñoz MD in [place] 06/09/2019 06:26
== END ==
PROVIDERS: PCP Internal Medicine Adolescent Medicine; Visit Provider Orthopaedic Surgery
DX: S42.292A Other displaced fracture of upper end of left humerus, initial encounter for closed fracture (principal)
CPT/HCPCS: 73040; 73202; Q9967

== ENCOUNTER → 2019-06-14 10:14 | Outpatient (CLI) | payer OTHER, SELFPAY ==
--- NOTE | 2019-06-14 10:35 | XR_ITS ---
PROCEDURE: XR CHEST 2V Patient Age:58Y CLINICAL HISTORY: HIGH BLOOD PRESSURE, PRE-OP Hypertension. Nonsmoker. Left shoulder COMPARISON: CTAC CTA-CHEST from 09/12/2013 CXR CHEST(2 VIEWS-NOT PORTABLE) from 07/10/2014 CXR1 CHEST-PORTABLE from 03/31/2015 CXR1 CHEST-PORTABLE from 08/28/2016 Surgery the FINDINGS: PA and lateral chest performed lungs are well expanded and clear. No change since previous study most recent CXR 08/28/2016 Cardiomediastinal silhouette and pulmonary vascularity are within normal limits. The lungs are clear without infiltrates, suspicious nodules, or pleural effusions. No acute bony abnormalities. The chest wall and T-spine appear stable but mild anterior marginal osteophytes mid T-spine. There has been previous ORIF of the proximal left shoulder but multiple screws and side plate partially imaged here on today's CXR IMPRESSION: Lungs clear with no active disease. Stable chest. Heart normal size; with normal pulmonary vascularity. Dictated by: Sukhwinder Friedman MD 06/14/2019 15:03 Electronically signed by Sukhwinder Friedman MD in [place] 06/14/2019 15:03
[2019-06-14 10:44] LABS: Basophils # 0.1 K/mm3 (0-0.2); Basophils % 0.6 % (0.1-2.0); Eosinophils # 0.1 K/mm3 (0.0-0.4); Eosinophils % 1.3 % (0.1-12.0); Hematocrit 40.5 % (37.0-47.0); Hemoglobin 12.9 g/dL (12.2-16.2); Lymphocytes # 1.5 K/mm3 (0.7-4.5); Lymphocytes % 18.8 % (10-50); Mean Corpuscular HGB Conc 31.9 g/dL (31.8-35.4); Mean Corpuscular Hemoglobin 26.9 pg (27.0-31.2); Mean Corpuscular Volume 84.3 fl (81-99); Mean Platelet Volume 8.5 fl (7.4-10.4); Monocytes # 0.4 K/mm3 (0.1-1.0); Neutrophils % 74.2 % (37.0-80.0); Platelet Count 303 K/mm3 (142-424); Red Blood Count 4.81 M/mm3 (4.20-5.40); Red Cell Distribution Width 15.4 % (11.5-17.5)
[2019-06-14 11:10] LABS: Anion Gap 17.9 mEq/L (5-15); Blood Urea Nitrogen 13 mg/dL (7-18); Calcium 9.1 mg/dL (8.5-10.1); Carbon Dioxide 28 mmol/L (21.0-32.0); Chloride 101 mmol/L (98-107); Creatinine,Serum 0.93 mg/dL (0.55-1.02); Estimated Glomerular Filt Rate 62 ml/min (>60); GFR (African American) 75 ML/MIN (>60); Glucose 145 mg/dL (74-106); Potassium 3.9 mmoL/L (3.5-5.1); Sodium 143 mmol/L (136-145)
--- NOTE | 2019-06-14 11:15 | ECG_ITS ---
APPROVED REPORT Exam: Resting ECG HR:82 bpm ECG Measurements Heart Rate 82 AXES TN 142 P 13 QRSd 76 QRS -6 QT 370 T -25 QTc 432 <Conclusion> Normal sinus rhythm ST & T wave abnormality, consider anterior and inferior ischemia Abnormal ECG Electronically signed by : Willie Carlton, 06/15/2019 16:57:45
== END ==
PROVIDERS: PCP Internal Medicine Adolescent Medicine; Visit Provider Orthopaedic Surgery
DX: Z01.818 Encounter for other preprocedural examination (principal); S42.292D Other displaced fracture of upper end of left humerus, subsequent encounter for fracture with routine healing; M75.42 Impingement syndrome of left shoulder; M75.22 Bicipital tendinitis, left shoulder; M67.912 Unspecified disorder of synovium and tendon, left shoulder
CPT/HCPCS: 36415; 71046; 80048; 85025; 93005

== ENCOUNTER 2019-08-13 15:30 | Outpatient (RCR) | payer OTHER, SELFPAY ==
--- NOTE | 2019-07-09 15:23 | HMH.OTOPEV ---
OT Inpatient Evaluation Rehab OT Outpatient Eval Start: 07/09/19 14:58 Freq: Status: Active Protocol: Document 07/09/19 14:58 RMARSHALDavid (Rec: [facility]09[facility]19 [id number] Electronically Signed By Aimee Lloyd OT 07/09/19 14:58 Outpatient Therapy Subjective History Subjective History Pt is a 59 year old female who reports to therapy for evaluation to left shoulder. Pt was seen previously by OT due to proximal humerus fx that required an ORIF on January 08, 2019. Pt began having pain in the left shoulder a few months ago and required a Lt shoulder arthroscopic bicep tenotomy, glenohumeral joint debridement, SAD with subacromial and subdeltoid busectomy and bony acromioplasty on 06/19/19. Pt demonstrates with a decrease in AROM and strength at left shoulder. Pt will continue to be seen twice a week in order to address deficits. Chief Complaint Pain,Stiff,Weakness Symptom Type Ache,Throb,Sharp,Dull,Burning, Shooting Symptoms Relieved By Rest/Positioning,Ice Symptoms Aggravated By Physical Activity,Lifting Prior Functional Limitations None Current Functional Limitations Reaching,Lifting,Housework, Sleeping,Recreation Activity Symptom Description Intermittent,Activity Dependent Level of pain today (0-10) 0 Pain scale - at its best (0-10) 0 Pain scale - at its worst (0-10) 6 Shoulder/Elbow Eval Shoulder Objective Measurements Shoulder ROM Left Shoulder Abduction Active Range of 115 degrees Motion (degrees) Shoulder Flexion Active Range of Motion 110 degrees (degrees) Query Text: Shoulder External Rotation Active Range 65 degrees of Motion (degrees) Shoulder Internal Rotation Active Range 60 degrees of Motion (degrees) pain with active ROM shoulder exam left standard pain with passive ROM shoulder exam left standard decreased ROM shoulder exam standard left Shoulder MMT Shoulder Abduction Strength Grade 3 Fair Shoulder Extension Strength Grade 3 Fair Shoulder Flexion Strength Grade 3+ Fair+ Shoulder Horizontal Abduction Strengt
--- NOTE | 2019-07-09 15:30 | HMH.OTOPEV ---
OT Inpatient Evaluation Rehab OT Outpatient Eval Start: 07/09/19 14:58 Freq: Status: Active Protocol: Document 07/09/19 14:58 RMARSHALDavid (Rec: 07/09/19 15:23 [id number] Electronically Signed By Aimee Lloyd OT 07/09/19 14:58 Outpatient Therapy Subjective History Subjective History Pt is a 59 year old female who reports to therapy for evaluation to left shoulder. Pt was seen previously by OT due to proximal humerus fx that required an ORIF on January 08, 2019. Pt began having pain in the left shoulder a few months ago and required a Lt shoulder arthroscopic bicep tenotomy, glenohumeral joint debridement, SAD with subacromial and subdeltoid busectomy and bony acromioplasty on 06/19/19. Pt demonstrates with a decrease in AROM and strength at left shoulder. Pt will continue to be seen twice a week in order to address deficits. Chief Complaint Pain,Stiff,Weakness Symptom Type Ache,Throb,Sharp,Dull,Burning, Shooting Symptoms Relieved By Rest/Positioning,Ice Symptoms Aggravated By Physical Activity,Lifting Prior Functional Limitations None Current Functional Limitations Reaching,Lifting,Housework, Sleeping,Recreation Activity Symptom Description Intermittent,Activity Dependent Level of pain today (0-10) 0 Pain scale - at its best (0-10) 0 Pain scale - at its worst (0-10) 6 Shoulder/Elbow Eval Shoulder Objective Measurements Shoulder ROM Left Shoulder Abduction Active Range of 115 degrees Motion (degrees) Shoulder Flexion Active Range of Motion 110 degrees (degrees) Query Text: Shoulder External Rotation Active Range 65 degrees of Motion (degrees) Shoulder Internal Rotation Active Range 60 degrees of Motion (degrees) pain with active ROM shoulder exam left standard pain with passive ROM shoulder exam left standard decreased ROM shoulder exam standard left Shoulder MMT Shoulder Abduction Strength Grade 3 Fair Shoulder Extension Strength Grade 3 Fair Shoulder Flexion Strength Grade 3+ Fair+ Shoulder Horizontal Abduction Strengt
== END 2019-08-13 15:35 | disposition home or self-care (01) ==
LOC: OT 15:30
PROVIDERS: PCP Internal Medicine Adolescent Medicine; Visit Provider Orthopaedic Surgery
DX: S42.292D Other displaced fracture of upper end of left humerus, subsequent encounter for fracture with routine healing (principal); M75.42 Impingement syndrome of left shoulder; M75.22 Bicipital tendinitis, left shoulder; M67.912 Unspecified disorder of synovium and tendon, left shoulder
CPT/HCPCS: 97014; 97110; 97140; 97166; G0283

== ENCOUNTER → 2019-09-07 13:10 | Outpatient (CLI) | payer OTHER, SELFPAY ==
--- NOTE | 2019-09-07 13:14 | XR_ITS ---
PROCEDURE: XR SHOULDER LT MIN 2V CLINICAL INDICATION: sp LT shoulder surgery, sx 06/19/19 Follow-up surgery COMPARISON: XR SHOULDER LT MIN 2V from 03/04/2019 XR SHOULDER LT MIN 2V from 04/14/2019 XR SHOULDER LT MIN 2V from 05/27/2019 CT SHOULDER LT WO/W CON from 06/05/2019 IR ARTHROGRAM SHOULDER LT from 06/05/2019 FINDINGS: Status post ORIF left proximal humerus with lateral bone plate and multiple screws present. Much of the previously noted hyperdense debris within the shoulder is no longer apparent. Some hyperdense material is noted along the humeral neck and overlying the glenoid and some along the proximal humeral neck and greater trochanteric region. There is a small area of step-off along the humeral head superiorly not readily apparent previously and could be seen with early avascular necrosis. IMPRESSION: 1. Postsurgical changes. Hyperdense material about the shoulder joint appears less than when compared to the previous exam. 2. Cortical step-off in the humeral head superiorly which could be related to fracture or developing avascular necrosis Dictated by: Jarrett Muñoz MD 09/07/2019 14:31 Electronically signed by Jarrett Muñoz MD in [place] 09/07/2019 14:31
== END ==
PROVIDERS: PCP Internal Medicine Adolescent Medicine; Visit Provider Orthopaedic Surgery
DX: Z09 Encounter for follow-up examination after completed treatment for conditions other than malignant neoplasm (principal); S42.292D Other displaced fracture of upper end of left humerus, subsequent encounter for fracture with routine healing; M75.42 Impingement syndrome of left shoulder; M75.22 Bicipital tendinitis, left shoulder
CPT/HCPCS: 73030

== ENCOUNTER → 2019-12-07 12:54 | Outpatient (CLI) | payer OTHER, SELFPAY ==
--- NOTE | 2019-12-07 13:02 | XR_ITS ---
PROCEDURE: XR SHOULDER LT MIN 2V CLINICAL INDICATION: sp LT shoulder sx, DOS 06/19/19 Follow-up surgery/ORIF COMPARISON: XR SHOULDER LT MIN 2V from 04/14/2019 XR SHOULDER LT MIN 2V from 05/27/2019 CT SHOULDER LT WO/W CON from 06/05/2019 IR ARTHROGRAM SHOULDER LT from 06/05/2019 XR SHOULDER LT MIN 2V from 09/07/2019 FINDINGS: Status post ORIF left humeral neck fracture. Lateral bone plate is in place. Calcification noted along the humeral head as previously described. Nondisplaced fracture also involves the apex of the humeral head small density is once again noted over the superior glenoid region and may be due to extruded bone cement. Similar density noted at the humeral neck. IMPRESSION: Overall no change status post ORIF left humeral fracture as described above. Dictated by: Jarrett Muñoz MD 12/07/2019 13:46 Electronically signed by Jarrett Muñoz MD in [place] 12/07/2019 13:46
== END ==
PROVIDERS: PCP Internal Medicine Adolescent Medicine; Visit Provider Orthopaedic Surgery
DX: Z09 Encounter for follow-up examination after completed treatment for conditions other than malignant neoplasm (principal); S42.292D Other displaced fracture of upper end of left humerus, subsequent encounter for fracture with routine healing; M75.42 Impingement syndrome of left shoulder; M75.22 Bicipital tendinitis, left shoulder
CPT/HCPCS: 73030

== ENCOUNTER 2020-01-21 14:51 | Emergency (ER) | payer OTHER, SELFPAY ==
[2020-01-21 15:13] VITALS: PULSE 78; RESP 16; TEMP 36.9; O2SAT 98; BMI 32.9
--- NOTE | 2020-01-21 15:37 | HMH.EDUTC ---
[facility] [place] Clinical Impression: Sinusitis Qualifiers: Sinusitis location: unspecified location Chronicity: acute Recurrence: non-recurrent Qualified Code(s): J01.90 - Acute sinusitis, unspecified Disposition: Home, Self-Care Condition on Discharge: Good Instructions: Sinusitis, DI for Sinusitis, Preventing the Spread of Coronavirus Discharge Instructions Additional Instructions: Drink plenty of fluids. Take tylenol or ibuprofen for pain or fever. Take the medications as directed. Follow up with your regular doctor. GO TO THE ER FOR ANY WORSENING SYMPTOMS FOLLOW THE DIRECTIONS ON THE COVID-19 HAND OUT THAT WE GAVE YOU REGARDING SELF-ISOLATION UNTIL YOU KNOW YOUR COVID-19 RESULTS Prescriptions: methylPREDNISolone [Medrol] 4 mg PO DIRECTED 6 Days #21 tab.ds.pk Transmission Status: Received by [facility] [employer] Azithromycin [Z-Harvey 250mg Tab*] 250 mg PO UD DOSE PK #6 tab Transmission Status: Received by [facility] [employer] Referrals: Ernesto Vega MD [Primary Care Provider] - Forms: Work/School Release Time of Disposition: 15:40 Medical Decision Making - Medical Records Medical records reviewed: No: I reviewed the patient's medical records. - Jeffrey Inquiry Pt receiving controlled substance: No Vital Signs: 01/21/20 15:13 01/21/20 15:44 Temperature 98.5 F 98.5 F Temperature Source Oral Oral Pulse Rate 87 Pulse Rate [Right Brachial] 78 Respiratory Rate 16 16 Blood Pressure 0/0 L Blood Pressure Source Automatic Cuff Blood Pressure Position Sitting 02 Sat by Pulse Oximetry 98 Oxygen Delivery Method Room Air Room Air Orders (Tests/Meds): ORDERS Category Date Time Status SARS-CoV-2, STEFANO Stat Lab 01/21/20 15:30 [place] [facility] [place] - General Stated complaint: Ear pain, headache, cough Time Seen by Provider: 01/21/20 15:37 Mode of Arrival: Ambulatory Source of Information: Patient Limitations: No Limitations Description of Symptoms (Recalled from Triage Doc. by RN): pt c/o ear pain, headache and cough that started a month ago and she was treated for it and it had started coming back within the past couple of days HEENT Symptoms (Recalled from RN notes): Yes (cough, ear pain, headache) Resp Symptoms (Recalled from RN notes): No Skin Symptoms (Recalled from RN notes): No MS Symptoms (Recalled from RN notes): No Functional Status (Recalled from RN notes): na - History of Present Illness Provider Complaint: She c/o sinus congestion and sinus pressure for the past 2 weeks. 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 - Related Data Home Medications Medication Instructions Recorded Confirmed Omeprazole [Omeprazole 20mg 20 mg PO DAILY 08/04/17 12/09/19 Capsule] Venlafaxine HCl [Effexor XR 75mg 75 mg PO TID 09/08/18 12/09/19 capsule] gabapentin 100 mg capsule 100 mg PO TID cap 12/01/18 12/09/19 propranolol 40 mg tablet 40 mg PO BID tab 12/01/18 12/09/19 estradioL [Estradiol] 1 g VAGINAL .3 times weekly 01/08/19 12/09/19 lisinopril 10 1 tab PO DAILY 04/15/19 12/09/19 mg-hydrochlorothiazide 12.5 mg tablet Previous Rx's Medication Instructions Recorded cyclobenzaprine 5 mg tablet 5 mg PO TID PRN #20 tab 06/19/19 oxycodone-acetaminophen 5 mg-325 1 tab PO Q12HP PRN #20 tab 07/17/19 mg tablet Azithromycin [Z-Harvey 250mg Tab*] 250 mg PO UD DOSE PK #6 tab 01/21/20 methylPREDNISolone [Medrol] 4 mg PO DIRECTED 6 Days #21 01/21/20 tab.ds.pk Allergies Allergy/AdvReac Type Severity Reaction Status Date / Time No Known Allergies Allergy Verified 01/21/20 15:16 - Worker's Comp Is this a Worker's Comp case?: No [facility] History - Hepatitis A Screen Drug use history?: No High risk sexual behaviors?: No History of sexually transmitted infection?: No Currently employed?: No Childcare worker?: No Do you have indoor plumbing?: Yes Do you have electricity?: Yes Attestation statement:: This pat
[2020-01-21 15:44] VITALS: BP 0/0; PULSE 87; RESP 16; TEMP 36.9; O2SAT 98
[2020-01-23 13:35] LABS: Covid-19 Nasal PCR Sendout Lex Not Detected
== END 2020-01-21 15:45 | disposition home or self-care (01) ==
PROVIDERS: Emergency Provider Nurse Practitioner Family; PCP Internal Medicine Adolescent Medicine
DX: J01.90 Acute sinusitis, unspecified (principal); Z03.818 Encounter for observation for suspected exposure to other biological agents ruled out; F41.8 Other specified anxiety disorders; I10 Essential (primary) hypertension; K21.9 Gastro-esophageal reflux disease without esophagitis; Z95.0 Presence of cardiac pacemaker; Z90.79 Acquired absence of other genital organ(s)
CPT/HCPCS: 99201; U0004

== ENCOUNTER 2020-02-10 15:19 | Emergency (ER) | payer OTHER, SELFPAY ==
--- NOTE | 2020-02-10 15:12 | ECG_ITS ---
APPROVED REPORT Exam: Resting ECG HR:68 bpm ECG Measurements Heart Rate 68 AXES NH 140 P 18 QRSd 86 QRS -10 QT 394 T -34 QTc 418 <Conclusion> Normal sinus rhythm ST & T wave abnormality, unchanged from ECG in 2019 Abnormal ECG Electronically signed by : Ernesto Vega, 02/12/2020 07:54:36
[2020-02-10 15:19] VITALS: BP 145/85; PULSE 71; RESP 16; TEMP 37.5; O2SAT 98; BMI 32.9
--- NOTE | 2020-02-10 15:23 | XR_ITS ---
PROCEDURE: XR CHEST PORTABLE CLINICAL HISTORY: chest pain COMPARISON: CT CTAC CTA-CHEST from 09/12/2013 CR CXR1 CHEST-PORTABLE from 03/31/2015 CR CXR1 CHEST-PORTABLE from 08/28/2016 CR XR CHEST 2V from 06/14/2019 FINDINGS: Borderline cardiomegaly without failure. The lungs are clear without infiltrates, suspicious nodules, or pleural effusions. Left humerus bone plate is present proximally IMPRESSION: No acute findings. Dictated b Jarrett Muñoz MD 02/10/2020 16:08 Jarrett Muñoz MD in [place] 02/10/2020 16:08
--- NOTE | 2020-02-10 15:23 | HMH.EDCP ---
ED Disposition Clinical Impression: Atypical chest pain Disposition: Home, Self-Care Condition on Discharge: Good Instructions: DI for Atypical Chest Pain Additional Instructions: You have been evaluated for chest pain, atypical. Please call your primary care physician tomorrow for symptom recheck. Please follow-up with cardiology, Dr. Denis in clinic as soon as available. Return to the emergency department if you have any new or worsening symptoms, chest pain, shortness of breath, other concerns. Referrals: Ernesto Vega MD [Primary Care Provider] - Time of Disposition: 18:14 - Critical Care Critical Care Time: No Attestation: On 02/10/20, the high probability of a clinically significant, sudden or life threatening deterioration of the following system(s) required my full and direct attention, intervention and personal management. The time I documented below is in addition to time spent performing reported procedures but includes the following listed in this critical care notation. Medical Decision Making - Medical Records Medical records reviewed: Yes: I reviewed the patient's medical records. - Jeffrey Inquiry Pt receiving controlled substance: No Vital Signs: 02/10/20 15:19 02/10/20 17:20 02/10/20 17:57 Temperature 99.5 F Temperature Source Oral Pulse Rate [Left Radial] 71 68 69 Respiratory Rate 16 16 Blood Pressure [Right Arm] 145/85 H 150/70 H 130/81 Blood Pressure Mean [Right Arm] 105 96 97 Blood Pressure Source [Right Arm] Automatic Cuff Automatic Cuff Blood Pressure Position [Right Arm] Sitting Sitting Sitting 02 Sat by Pulse Oximetry 98 100 97 Oxygen Delivery Method Room Air Room Air Room Air - Lab Data Lab Results 02/10/20 15:33: WBC 8.7, RBC 4.55, Hgb 13.0, Hct 37.8, MCV 83.1, MCH 28.6, MCHC 34.5, RDW 14.8, Plt Count 264, MPV 8.5, Neut % (Auto) 69.7, Lymph % (Auto) 22.8, [place] % (Auto) 4.8, Eos % (Auto) 2.3, Baso % (Auto) 0.4, Neut # (Auto) 6.0, Lymph # (Auto) 2.0, [place] # (Auto) 0.4, Eos # (Auto) 0.2, Baso # (Auto) 0.0 02/10/20 15:33: Sodium 138, Potassium 3.3 L, Chloride 98, Carbon Dioxide 29, Anion Gap 14.3, BUN 12, Creatinine 0.80, Estimated Creat Clear 100, Estimated GFR 74, Est GFR ( Amer) 89, Glucose 108 H, Calcium 9.4, Troponin I < 0.01 02/10/20 15:33: D-Dimer < 100 02/10/20 17:55: Troponin I < 0.01 Result diagrams: 02/10/20 15:33 02/10/20 15:33 Orders (Tests/Meds): ED MEDICATIONS Discontinued Medications Generic Name Dose Route Start Last Admin Trade Name Freq PRN Reason Stop Dose Admin Aspirin 324 mg 02/10/20 15:27 02/10/20 15:28 Aspirin 81mg Chewable Tablet PO 02/10/20 15:28 324 mg ONCE ONE Administration Ioversol 70 ml 02/10/20 17:10 02/10/20 17:11 Rad-Optiray 350 100ml Vial IV 02/10/20 17:11 70 ml ONCE ONE Administration Protocol Nitroglycerin 0.4 mg 02/10/20 15:52 02/10/20 15:55 Nitrostat 0.4mg Sl Tablet SL 02/10/20 15:53 Not Given ONCE ONE Sodium Chloride 50 ml 02/10/20 17:10 02/10/20 17:11 Rad-Ns 50ml Vial IV 02/10/20 17:11 50 ml ONCE ONE Administration Sodium Chloride 10 ml 02/10/20 17:10 02/10/20 17:11 Rad-Saline Flush 10ml Syringe IV 02/10/20 17:11 10 ml ONCE ONE Administration ORDERS Category Date Time Status CTA Chest [CT angio chest] Stat Cat Scan 02/10/20 16:35 Taken Troponin I Q3H Lab 02/10/20 21:30 Ordered - CT Data CT Scan: Chest Time Received: 18:[address] Reviewed: Yes: I have reviewed the patient's CT results, I have viewed the radiologist's interpretation Preliminary Findings: Normal/NAD Findings Narrative: CT angiography of the chest. Aorta unremarkable. No aortic aneurysm. No aortic dissection. No abnormality of the pulmonary arteries. - ECG Data Tracing #1 Sinus rhythm with ventricular rate of 68 bpm. QRS 86, QTc 418. - NORAH Score for Non-Stemi Age of Patient: 50-59 years old Heart Rate: 70-89 bpm Systolic Blood Pressure: 14
[2020-02-10 15:43] LABS: Basophils % 0.4 % (0.1-2.0); Eosinophils # 0.2 K/mm3 (0.0-0.4); Eosinophils % 2.3 % (0.1-12.0); Hematocrit 37.8 % (37.0-47.0); Lymphocytes % 22.8 % (10-50); Mean Corpuscular HGB Conc 34.5 g/dL (31.8-35.4); Mean Corpuscular Hemoglobin 28.6 pg (27.0-31.2); Mean Corpuscular Volume 83.1 fl (81-99); Mean Platelet Volume 8.5 fl (7.4-10.4); Monocytes # 0.4 K/mm3 (0.1-1.0); Monocytes % 4.8 % (1.7-9.3); Neutrophils % 69.7 % (37.0-80.0); Platelet Count 264 K/mm3 (142-424); Red Blood Count 4.55 M/mm3 (4.20-5.40); Red Cell Distribution Width 14.8 % (11.5-17.5); White Blood Count 8.7 K/mm3 (4.8-10.8)
[2020-02-10 15:50] LABS: Chloride 98 mmol/L (98-107)
[2020-02-10 15:51] LABS: Potassium 3.3 mmoL/L (3.5-5.1); Sodium 138 mmol/L (136-145)
[2020-02-10 15:53] LABS: Blood Urea Nitrogen 12 mg/dl (7-17); Creatinine Clearance Estimated 100 mL/min (50-200); Estimated Glomerular Filt Rate 74 ml/min (>60); GFR (African American) 89 ML/MIN (>60)
[2020-02-10 15:54] LABS: Anion Gap 14.3 mEq/L (5-15); Calcium 9.4 mg/dl (8.4-10.2); Carbon Dioxide 29 mmol/L (22.0-30.0); Glucose 108 mg/dl (74-100)
[2020-02-10 16:09] LABS: Troponin I < 0.01 ng/ml (0.00-0.034)
[2020-02-10 16:30] VITALS: BP 125/76; PULSE 69
--- NOTE | 2020-02-10 16:30 | PC.NURSE ---
speaking with Jayson Agarwal
[2020-02-10 16:32] LABS: D-Dimer < 100 ng/mL (0-400)
--- NOTE | 2020-02-10 16:35 | CT_ITS ---
PROCEDURE: CT ANGIO CHEST CLINCIAL INDICATION: chest pain, to jaw, ascending dilation in 2015 COMPARISON: CT CTAC CTA-CHEST from 09/12/2013 TECHNIQUE: IV Contrast: 70ML OPTIRAY 350 Axial images obtained with sagittal and coronal reformats. All CT scans at the facility use one or more dose reduction, viz: automated exposure control, ma/kV adjustment per patient size (including targeted exams where dose is matched to indication, i.e. head), or iterative reconstruction technique. FINDINGS: HEART AND MEDIASTINAL STRUCTURES: Unremarkable. Minimal ectasia ascending thoracic aorta at 3.2 cm. No dissection or pulmonary embolus. LUNGS AND PLEURAL SPACES: Minimal atelectatic or fibrotic changes in the left lung base. BONY STRUCTURES: No acute bony abnormalities apparent. UPPER ABDOMEN: Unremarkable. ADDITIONAL FINDINGS: No other significant abnormalities. IMPRESSION: No acute finding Dictated b Jarrett Muñoz MD 02/11/2020 09:31 Jarrett Muñoz MD in [facility] 02/11/2020 09:31
[2020-02-10 17:20] VITALS: BP 150/70; PULSE 68; RESP 16; O2SAT 100
[2020-02-10 17:57] VITALS: BP 130/81; PULSE 69; O2SAT 97
[2020-02-10 18:31] LABS: Troponin I < 0.01 ng/ml (0.00-0.034)
[2020-02-10 18:48] VITALS: BP 143/60; PULSE 74; RESP 16; TEMP 36.6; O2SAT 100
== END 2020-02-10 18:49 | disposition home or self-care (01) ==
PROVIDERS: Emergency Provider Emergency Medicine; PCP Internal Medicine Adolescent Medicine
DX: R07.89 Other chest pain (principal); R10.13 Epigastric pain; I10 Essential (primary) hypertension; F41.8 Other specified anxiety disorders; Z90.710 Acquired absence of both cervix and uterus; Z79.899 Other long term (current) drug therapy
CPT/HCPCS: 71045; 71275; 80048; 84484; 85025; 85378; 93005; 99283; Q9967

== ENCOUNTER → 2020-05-31 10:45 | Outpatient (CLI) | payer OTHER, SELFPAY ==
--- NOTE | 2020-05-31 10:54 | XR_ITS ---
PROCEDURE: XR SHOULDER LT MIN 2V CLINICAL INDICATION: sp LT shoulder surgery, dos 06/19/19 Follow-up surgery COMPARISON: CR XR SHOULDER LT MIN 2V from 05/27/2019 DX,RF IR ARTHROGRAM SHOULDER LT from 06/05/2019 DX XR SHOULDER LT MIN 2V from 09/07/2019 CR XR SHOULDER LT MIN 2V from 12/07/2019 FINDINGS: Status post ORIF left humeral neck fracture with lateral bone plate and good alignment of the fracture fragments. There is 1 small loose fragment along the humeral head versus calcification within the rotator cuff. There is good alignment. The glenoid fracture appears less apparent. IMPRESSION: Good alignment status post ORIF left humeral neck fracture with healing glenoid fracture Dictated by: Jarrett Muñoz MD 05/31/2020 11:37 Jarrett Muñoz MD in [facility] 05/31/2020 11:37
== END ==
PROVIDERS: PCP Internal Medicine Adolescent Medicine; Visit Provider Orthopaedic Surgery
DX: Z09 Encounter for follow-up examination after completed treatment for conditions other than malignant neoplasm (principal)
CPT/HCPCS: 73030

== ENCOUNTER 2020-09-09 22:20 | Emergency (ER) | payer OTHER, SELFPAY ==
[2020-09-09 22:21] VITALS: BP 146/72; PULSE 87; RESP 20; TEMP 36.6; O2SAT 98; BMI 36.2
[2020-09-09 23:00] VITALS: BP 149/80; PULSE 83; RESP 17; O2SAT 95
[2020-09-09 23:21] LABS: Basophils # 0.1 K/mm3 (0-0.2); Basophils % 0.6 % (0.1-2.0); Eosinophils # 0.3 K/mm3 (0.0-0.4); Eosinophils % 2.4 % (0.1-12.0); Hematocrit 33.8 % (37.0-47.0); Hemoglobin 10.7 g/dL (12.2-16.2); Lymphocytes # 2.7 K/mm3 (0.7-4.5); Lymphocytes % 25.3 % (10-50); Mean Corpuscular HGB Conc 31.6 g/dL (31.8-35.4); Mean Corpuscular Hemoglobin 25.6 pg (27.0-31.2); Mean Corpuscular Volume 80.9 fl (81-99); Mean Platelet Volume 8.7 fl (7.4-10.4); Monocytes # 0.7 K/mm3 (0.1-1.0); Monocytes % 6.3 % (1.7-9.3); Neutrophils # 6.9 K/mm3 (1.8-7.8); Neutrophils % 65.4 % (37.0-80.0); Platelet Count 288 K/mm3 (142-424); Red Blood Count 4.17 M/mm3 (4.20-5.40); Red Cell Distribution Width 14.5 % (11.5-17.5); White Blood Count 10.6 K/mm3 (4.8-10.8)
[2020-09-09 23:29] LABS: Alanine Aminotransferase 32 U/L (12-78); Albumin Level 3.7 g/dl (3.5-5.0); Albumin/Globulin Ratio 1.2 (1.1-1.8); Alkaline Phosphatase 85 U/L (38-126); Anion Gap 11.4 mEq/L (5-15); Aspartate Amino Transferase 33 U/L (14-36); Bilirubin,Total 0.2 mg/dl (0.2-1.3); Blood Urea Nitrogen 10 mg/dl (7-17); Carbon Dioxide 26 mmol/L (22.0-30.0); Chloride 104 mmol/L (98-107); Creatinine Clearance Estimated 145 mL/min (50-200); Estimated Glomerular Filt Rate 103 ml/min (>60); GFR (African American) 124 ML/MIN (>60); Glucose 197 mg/dl (74-100); Potassium 3.4 mmoL/L (3.5-5.1); Sodium 138 mmol/L (136-145); Total Protein,Serum 6.7 g/dl (6.3-8.2)
[2020-09-09 23:30] VITALS: BP 141/84; PULSE 84; RESP 15; O2SAT 98
[2020-09-09 23:35] LABS: C-Reactive Protein 6.7 mg/L (0-4)
--- NOTE | 2020-09-09 23:36 | HMH.EDBACK ---
ED Disposition Clinical Impression: UTI (urinary tract infection) Qualifiers: Urinary tract infection type: site unspecified Hematuria presence: without hematuria Qualified Code(s): N39.0 - Urinary tract infection, site not specified Disposition: Home, Self-Care Condition on Discharge: Good Instructions: DI for Low Back Pain Additional Instructions: use meds and call pcp for follow up and urine culture results Prescriptions: levoFLOXacin [Levaquin 500mg tab] 500 mg PO DAILY #7 tab Transmission Status: Pending to [facility] Referrals: Ernesto Vega MD [Primary Care Provider] - - Critical Care Critical Care Time: No Attestation: On 09/09/20, the high probability of a clinically significant, sudden or life threatening deterioration of the following system(s) required my full and direct attention, intervention and personal management. The time I documented below is in addition to time spent performing reported procedures but includes the following listed in this critical care notation. Medical Decision Making - Medical Records Medical records reviewed: Yes: I reviewed the patient's medical records. - Jeffrey Inquiry Pt receiving controlled substance: No Vital Signs: 09/09/20 22:21 09/09/20 23:00 09/09/20 23:30 Temperature 97.8 F Temperature Source Oral Pulse Rate [Right Brachial] 87 83 84 Respiratory Rate 20 17 15 Blood Pressure [Right Arm] 146/72 H 149/80 H 141/84 H Blood Pressure Mean [Right Arm] 96 103 103 Blood Pressure Source [Right Arm] Automatic Cuff Automatic Cuff Automatic Cuff Blood Pressure Position [Right Arm] Supine Supine 02 Sat by Pulse Oximetry 98 95 98 Oxygen Delivery Method Room Air Room Air Room Air 09/10/20 01:00 09/10/20 01:30 09/10/20 02:00 Temperature Temperature Source Pulse Rate [Right Brachial] 79 74 69 Respiratory Rate 15 19 17 Blood Pressure [Right Arm] 134/80 137/78 138/79 Blood Pressure Mean [Right Arm] 98 97 98 Blood Pressure Source [Right Arm] Manual Cuff/ Doppler Automatic Cuff Automatic Cuff Blood Pressure Position [Right Arm] Supine Supine Supine 02 Sat by Pulse Oximetry 95 95 97 Oxygen Delivery Method Room Air Room Air Room Air - Lab Data Lab results reviewed: Yes: I reviewed the patient's lab results. Lab Results 09/09/20 23:05: WBC 10.6, RBC 4.17 L, Hgb 10.7 L, Hct 33.8 L, MCV 80.9 L, MCH 25.6 L, MCHC 31.6 L, RDW 14.5, Plt Count 288, MPV 8.7, Neut % (Auto) 65.4, Lymph % (Auto) 25.3, [place] % (Auto) 6.3, Eos % (Auto) 2.4, Baso % (Auto) 0.6, Neut # (Auto) 6.9, Lymph # (Auto) 2.7, [place] # (Auto) 0.7, Eos # (Auto) 0.3, Baso # (Auto) 0.1 09/09/20 23:05: Sodium 138, Potassium 3.4 L, Chloride 104, Carbon Dioxide 26, Anion Gap 11.4, BUN 10, Creatinine 0.60, Estimated Creat Clear 145, Estimated GFR 103, Est GFR ( Amer) 124, Glucose 197 H, Calcium 9.0, Total Bilirubin 0.2, AST 33, ALT 32, Alkaline Phosphatase 85, C-Reactive Protein 6.7 H, Total Protein 6.7, Albumin 3.7, Globulin 3.0, Albumin/Globulin Ratio 1.2 09/09/20 23:05: ESR 19 09/09/20 23:05: Procalcitonin 0.067 09/09/20 23:45: Urine Color Yellow, Urine Appearance Clear, Urine pH 5.5, Ur Specific [place] 1.025, Urine Protein Negative, Urine Glucose (UA) Negative, Urine Ketones Negative, Urine Blood Trace-i, Urine Nitrate Negative, Urine Bilirubin Negative, Urine Urobilinogen 0.2, Ur Leukocyte Esterase 1+ A, Urine RBC 3-5, Urine WBC 10-20, Ur Squamous Epith Cells 5-10 Result diagrams: 09/09/20 23:05 09/09/20 23:05 Orders (Tests/Meds): ED MEDICATIONS Generic Name Dose Route Start Last Admin Trade Name Freq PRN Reason Stop Dose Admin Sodium Chloride 1,000 mls @ 999 mls/hr 09/09/20 23:45 09/09/20 23:43 Sod Chlor 0.9% 1000ml Bag IV 09/10/20 00:45 999 mls/hr .Q1H1M PHILIP Administration Ceftriaxone Sodium 1 gm/ 50 mls @ 100 mls/hr 09/10/20 01:30 09/10/20 01:40 Sodium Chloride IV 09/24/20 01:29 100 mls/hr Q24H PHILIP Administration Protocol Discontinued Medic
[2020-09-09 23:49] LABS: Procalcitonin 0.067 ng/mL (0.0-2.0)
[2020-09-09 23:52] LABS: Erythrocyte Sedimentation Rate 19 mm/hr (0-30)
[2020-09-09 23:55] LABS: Appearance,Urine CLEAR (Clear); Bilirubin,Urine Negative (Negative); Blood, Urine TRACE-I (Negative); Color,Urine YELLOW (Yellow); Glucose,Urine (UA) Negative (Negative); Ketones,Urine Negative (Negative); Leukocyte Esterase,Urine 1+ (Negative); Microscopic, Urine URINE MICROSCOPIC (MICROSCOPIC); Nitrate,Urine Negative (Negative); PH,Urine 5.5 (5.0-8.5); Protein,Urine Negative (Negative); Specific Gravity, Urine 1.025 (1.005-1.030); Urobilinogen,Urine 0.2 EU/dl (0.2)
--- NOTE | 2020-09-10 00:05 | CT_ITS ---
PROCEDURE: CT LUMBAR SPINE W CON CLINICAL HISTORY: back pain with weakness COMPARISON: No exams were available for comparison TECHNIQUE: Axial images obtained with sagittal and coronal reformats. All CT scans at the facility use one or more dose reduction, viz: automated exposure control, ma/kV adjustment per patient size (including targeted exams where dose is matched to indication, i.e. head), or iterative reconstruction technique. FINDINGS: Normal alignment. No acute fracture or dislocation. No lytic or blastic change. Mild degenerative disc disease L2-L3. Minimal bulging disc with mild degenerative disc disease L3-L4. Mild bulging disc L4-5 with mild facet and ligamentum hypertrophy. Facet hypertrophic changes present on the right at L5-S1. There are mild degenerative changes of the SI joints. IMPRESSION: Mild lumbar spondylosis, no acute finding Dictated by: Jarrett Muñoz MD 09/10/2020 07:23 Jarrett Muñoz MD in [place] 09/10/2020 07:23
--- NOTE | 2020-09-10 00:05 | CT_ITS ---
PROCEDURE: CT ABDOMEN PELVIS WO CON CLINICAL INDICATION: flank pain Generalized abdominal pain, flank pain COMPARISON: CT ABDPELW CT ABD PELVIS W/ CONTRAST from 05/07/2013 TECHNIQUE: Axial images obtained with sagittal and coronal reformats. All CT scans at the facility use one or more dose reduction, viz: automated exposure control, ma/kV adjustment per patient size (including targeted exams where dose is matched to indication, i.e. head), or iterative reconstruction technique. FINDINGS: LOWER THORAX: Fat deposition is present within the wall of the right ventricle ABDOMEN & PELVIS: Fatty liver. The spleen, adrenal glands, pancreas, and kidneys have an unremarkable unenhanced appearance. No renal or ureteral calculi. No hydronephrosis. Surgical clips are present in the right lower quadrant from prior colon surgery. Ileocolic anastomosis has an unremarkable unenhanced appearance. There is a mild amount of retained colonic feces. No evidence appendicitis or diverticulitis. Post hysterectomy. No pelvic mass or abnormal fluid collection. 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
--- NOTE | 2020-09-10 00:05 | CT_ITS ---
PROCEDURE: CT THORACIC SPINE W CON CLINICAL HISTORY: back pain with weakness COMPARISON: CT SPTHORWO CT thoracic spine wo con from 01/07/[address] ANGIO CHEST from 02/10/2020 TECHNIQUE: Axial images obtained with sagittal and coronal reformats. All CT scans at the facility use one or more dose reduction, viz: automated exposure control, ma/kV adjustment per patient size (including targeted exams where dose is matched to indication, i.e. head), or iterative reconstruction technique. FINDINGS: Normal alignment. No fracture or dislocation. No lytic or blastic change. Mild multilevel degenerative disc disease with anterior endplate osteophytes. No paraspinal mass. No obvious epidural mass. Minimal ground-glass attenuation right lower lobe posteriorly. Calcified granuloma left lower lobe IMPRESSION: Mild thoracic spondylosis, no acute finding Dictated by: Jarrett Muñoz MD 09/10/2020 07:28 Jarrett Muñoz MD in [facility] 09/10/2020 07:28
[2020-09-10 01:00] VITALS: BP 134/80; PULSE 79; RESP 15; O2SAT 95
[2020-09-10 01:30] VITALS: BP 137/78; PULSE 74; RESP 19; O2SAT 95
[2020-09-10 02:00] VITALS: BP 138/79; PULSE 69; RESP 17; O2SAT 97
[2020-09-10 02:30] VITALS: BP 125/80; PULSE 71; RESP 18; O2SAT 98
[2020-09-10 02:40] VITALS: BP 124/78; PULSE 72; RESP 18; TEMP 36.7; O2SAT 98
== END 2020-09-10 02:45 | disposition home or self-care (01) ==
PROVIDERS: Emergency Provider Emergency Medicine; PCP Internal Medicine Adolescent Medicine
DX: N30.00 Acute cystitis without hematuria (principal); F41.8 Other specified anxiety disorders; I10 Essential (primary) hypertension; Z79.899 Other long term (current) drug therapy
CPT/HCPCS: 72129; 72132; 74176; 80053; 81001; 84145; 85025; 85651; 86140; 87086; 96365; 96367; 96375; 99284; J2405; Q9967

== ENCOUNTER → 2020-09-27 07:01 | Outpatient (CLI) | payer OTHER, SELFPAY ==
--- NOTE | 2020-09-27 07:12 | XR_ITS ---
PROCEDURE: XR FOOT WT BEARING LT 3V CLINICAL INDICATION: foot pain COMPARISON: No exams were available for comparison FINDINGS: No fracture or dislocation. No lytic or blastic change. There is normal mineralization. The joint spaces are well-preserved. No significant degenerative/arthritic changes. No erosive changes evident. Other findings:Calcaneal spur and Achilles tendon enthesopathy is noted. No significant soft tissue abnormality is noted. IMPRESSION: No acute findings. Dictated by: Chloé Garcia 09/27/2020 07:43 Chloé Garcia in [facility] 09/27/2020 07:43
--- NOTE | 2020-09-27 07:12 | XR_ITS ---
PROCEDURE: XR FOOT WT BEARING RT 3V CLINICAL INDICATION: foot pain COMPARISON: No exams were available for comparison FINDINGS: No fracture or dislocation. No lytic or blastic change. There is normal mineralization. The joint spaces are well-preserved. No significant degenerative/arthritic changes. No erosive changes evident. Other findings:Calcaneal spur and minor Achilles tendon enthesopathy is noted. IMPRESSION: No acute findings. Dictated by: Chloé Garcia 09/27/2020 07:41 Chloé Garcia in [facility] 09/27/2020 07:41
== END ==
PROVIDERS: PCP Internal Medicine Adolescent Medicine; Visit Provider Podiatrist
DX: M79.672 Pain in left foot (principal); M79.671 Pain in right foot
CPT/HCPCS: 73630

== ENCOUNTER → 2020-10-12 12:50 | Outpatient (CLI) | payer OTHER, SELFPAY ==
--- NOTE | 2020-10-12 13:19 | XR_ITS ---
PROCEDURE: XR CHEST 2V CLINICAL HISTORY: SOB Shortness of breath COMPARISON: CR CXR1 CHEST-PORTABLE from 08/28/2016 CR XR CHEST 2V from 06/14/2019 CR XR CHEST PORTABLE from 02/10/[address] ANGIO CHEST from 02/10/2020 FINDINGS: The cardiomediastinal silhouette and pulmonary vascularity are within normal limits. The lungs are clear without infiltrates, suspicious nodules, or pleural effusions. Bone plate is present along the proximal humerus on the left IMPRESSION: No change with no acute finding Dictated by: Jarrett Muñoz MD 10/12/2020 13:44 Jarrett Muñoz MD in [facility] 10/12/2020 13:44
[2020-10-12 14:04] LABS: Hemoglobin A1C 7.4 % (4.0-6.0)
[2020-10-12 14:14] LABS: Alanine Aminotransferase 43 U/L (12-78); Albumin Level 4.1 g/dl (3.5-5.0); Albumin/Globulin Ratio 1.8 (1.1-1.8); Alkaline Phosphatase 87 U/L (38-126); Anion Gap 12.7 mEq/L (5-15); Aspartate Amino Transferase 52 U/L (14-36); Bilirubin,Total 0.4 mg/dl (0.2-1.3); Blood Urea Nitrogen 13 mg/dl (7-17); Calcium 9.4 mg/dl (8.4-10.2); Carbon Dioxide 26 mmol/L (22.0-30.0); Chloride 105 mmol/L (98-107); Chol/HDL Ratio 2.3 (1-3.5); Cholesterol 183 mg/dl (140-200); Estimated Glomerular Filt Rate 103 ml/min (>60); GFR (African American) 124 ML/MIN (>60); Globulin 2.3 g/dL (1.3-3.2); Glucose 108 mg/dl (74-100); HDL Cholesterol 78 mg/dl (40-60); Potassium 3.7 mmoL/L (3.5-5.1); Sodium 140 mmol/L (136-145); Total Protein,Serum 6.4 g/dl (6.3-8.2); Triglycerides 160 mg/dl (30-150); VLDL Cholesterol 32 mg/dL (0-40)
[2020-10-12 14:24] LABS: NT Pro Brain Natriuretic Pep. 37.8 pg/mL (0-125)
[2020-10-12 14:25] LABS: Direct LDL Cholesterol 82.74 mg/dL (100-129)
[2020-10-12 14:27] LABS: Basophils # 0.1 K/mm3 (0-0.2); Basophils % 0.7 % (0.1-2.0); Eosinophils # 0.2 K/mm3 (0.0-0.4); Eosinophils % 2.9 % (0.1-12.0); Hematocrit 34.6 % (37.0-47.0); Hemoglobin 10.8 g/dL (12.2-16.2); Lymphocytes # 1.9 K/mm3 (0.7-4.5); Lymphocytes % 22.7 % (10-50); Mean Corpuscular HGB Conc 31.3 g/dL (31.8-35.4); Mean Corpuscular Hemoglobin 24.8 pg (27.0-31.2); Mean Corpuscular Volume 79.1 fl (81-99); Mean Platelet Volume 8.6 fl (7.4-10.4); Monocytes # 0.5 K/mm3 (0.1-1.0); Monocytes % 5.5 % (1.7-9.3); Neutrophils # 5.7 K/mm3 (1.8-7.8); Neutrophils % 68.2 % (37.0-80.0); Platelet Count 267 K/mm3 (142-424); Red Blood Count 4.37 M/mm3 (4.20-5.40); Red Cell Distribution Width 14.5 % (11.5-17.5); White Blood Count 8.3 K/mm3 (4.8-10.8)
[2020-10-12 14:32] LABS: 25-OH Vitamin D, Total 17.6 ng/mL (30-100)
[2020-10-12 14:45] LABS: Thyroid Stimulating Hormone 0.65 uIU/mL (0.465-4.68)
[2020-10-12 15:03] LABS: Vitamin B12 310 pg/mL (239-931)
[2020-10-13 22:19] LABS: Iron 42 ug/dL (37-170)
[2020-10-13 22:28] LABS: Total Iron Binding Capacity 459 ug/dL (265-497)
== END ==
PROVIDERS: Internal Medicine Adolescent Medicine; Visit Provider Nurse Practitioner Family
DX: R06.02 Shortness of breath (principal); R60.0 Localized edema; R53.83 Other fatigue; D64.9 Anemia, unspecified; I10 Essential (primary) hypertension; E78.5 Hyperlipidemia, unspecified; R73.9 Hyperglycemia, unspecified; Z68.36 Body mass index [BMI] 36.0-36.9, adult
CPT/HCPCS: 36415; 71046; 80053; 80061; 82306; 82607; 82728; 83036; 83540; 83550; 83880; 84443; 85025

== ENCOUNTER → 2020-11-08 14:28 | Outpatient (CLI) | payer OTHER, SELFPAY ==
--- NOTE | 2020-11-08 | CA_ITS ---
APPROVED REPORT EXAM: Comprehensive 2D, Doppler, and color-flow Echocardiogram [employer]: Belia Campuzano RT(R) Ht: 5 ft 2 in Wt: 192lbs BSA: 1.88 BP: 123/77 mmHg Indications: SOB, HTN, smoker 2D Dimensions LVOT 1.95 cm (M/F) 1.5-2.5 LVEF (Pérez's) 55.00 % F: 54 - 74 LV Volume 78.20 mL F: 46 - 106 LV Volume Index 41.59 mL/m2 F: 29 - 61 M-Mode Dimensions RVDd 2.01 cm (0.9-2.6) LA Diam 3.12 cm (1.9-4.0) LVDd 4.84 cm (3.5-5.7) Ao Diam 2.65 cm (2.0-3.7) LVDs 3.52 cm (3.5-5.7) IVSd 0.75 cm (0.6-1.1) PWd 0.75 cm (0.6-1.1) EF (Teich) 52.90% FS 27.30% EDV (Teich) 109.60 mL ESV (Teich) 51.60 mL LV Diastology E Decel Time 207.00 (160-240 msec) E/A Ratio 1.0 MED E' 4.90 (< 7 cm/sec) E'/MED E' Ratio 18.22 (>14) LAT E' 5.20 (<10 cm/sec) E/LAT E' Ratio 17.17 (>14) Mitral Valve MV E Max Jaylen. 89.00 (40-130 cm/s) MV A Velocity 92.00 (40-130 cm/s) E/A Ratio 0.97 MV Decel. Time 207.00 (160-240 ms) MV PHT 61.00 ms Left Ventricle Technically difficult study because of the patient factors and poor acoustic windows. Left atrium is mildly enlarged, left ventricle is normal size, mild concentric left ventricular hypertrophy, visually estimated ejection fraction 55% with no regional wall motion abnormality, grade 1 diastolic dysfunction seen with tissue Doppler evidence of raise left atrial pressure. Right Ventricle Right atrium and right ventricle are normal size and contractility. Aortic Valve Aortic valve is minimally thickened and fibrosed, there is no aortic stenosis or aortic insufficiency. Mitral Valve Mitral valve is grossly normal, there is mild mitral regurgitation. Tricuspid Valve Tricuspid grossly normal, there is mild tricuspid regurgitation, tricuspid regurgitation jet velocity is inadequate for calculation of the right ventricular systolic pressure. Pulmonic Valve Pulmonic valve is poorly visualized. Great Vessels Aortic root is normal size. Pericardium No significant pericardial effusion noted. Conclusion 1. Technically difficult study, mildly in the left atrium, normal left ventricular size, mild concentric left ventricular hypertrophy, visually estimated ejection fraction 55% with no regional wall motion abnormality, grade 1 diastolic dysfunction seen with tissue Doppler evidence of raise left atrial pressure. 2. Mild mitral and tricuspid regurgitation. 3. No significant pericardial effusion noted. Electronically signed by : Neal Handy, 11/08/2020 21:29:50
== END ==
PROVIDERS: PCP Internal Medicine Adolescent Medicine; Visit Provider Internal Medicine Adolescent Medicine
DX: R06.02 Shortness of breath (principal); R60.0 Localized edema
CPT/HCPCS: 93306

== ENCOUNTER 2023-02-19 06:53 | Day surgery (SDC) | payer BC, SELFPAY ==
[2023-02-19 07:09] VITALS: BP 138/69; PULSE 68; RESP 18; TEMP 36.2; O2SAT 96; BMI 33.5
[2023-02-19 09:44] VITALS: BP 150/67; PULSE 64; RESP 17; O2SAT 99
[2023-02-19 09:49] VITALS: BP 141/65; PULSE 63; RESP 17; O2SAT 97
[2023-02-19 09:54] VITALS: BP 136/62; PULSE 69; RESP 18; O2SAT 98
[2023-02-19 09:59] VITALS: BP 134/63; PULSE 66; RESP 18; O2SAT 100
[2023-02-19 10:00] VITALS: BP 137/76; PULSE 65; RESP 18; TEMP 36.2; O2SAT 95
== END 2023-02-19 10:08 | disposition home or self-care (01) ==
PROVIDERS: PCP Internal Medicine Adolescent Medicine; Visit Provider Ophthalmology
PROC: (CPT 66984; principal; 2023-02-19 08:00)
DX: H25.812 Combined forms of age-related cataract, left eye (principal)
CPT/HCPCS: 66984; V2632

== ENCOUNTER 2023-03-12 06:51 | Day surgery (SDC) | payer BC, SELFPAY ==
[2023-03-06 16:55] VITALS: BMI 36.6
[2023-03-12] VITALS (8 sets, daily range): BP systolic 134–161; BP diastolic 75–88; PULSE 66–78; RESP 15–18; TEMP 36.3–36.6; O2SAT 94–100
== END 2023-03-12 08:43 | disposition home or self-care (01) ==
PROVIDERS: PCP Internal Medicine Adolescent Medicine; Visit Provider Ophthalmology
PROC: (CPT 66984; principal; 2023-03-12 08:00)
DX: H25.811 Combined forms of age-related cataract, right eye (principal)
CPT/HCPCS: 66984; V2632

== ENCOUNTER 2023-08-26 10:52 | Outpatient (CLI) | payer BC, SELFPAY ==
[2023-08-26 10:56] LABS: Adenovirus F 40/41, stool Not Detected (NotDetected); Astrovirus Not Detected (NotDetected); Campylobacter Not Detected (NotDetected); Clostridium Difficile A/B, PCR Not Detected (NotDetected); Cryptosporidium Not Detected (NotDetected); Cyclospora Cayetanesis Not Detected (NotDetected); Entamoeba histolytica Not Detected (NotDetected); Enteroaggregative E coli Not Detected (NotDetected); Enteropathogenic E coli Not Detected (NotDetected); Enterotoxigenic E coli Not Detected (NotDetected); Giardia lamblia Not Detected (NotDetected); Norovirus Not Detected (NotDetected); Plesimonas Shigalloides, PCR Not Detected (NotDetected); Rotavirus A Not Detected (NotDetected); Salmonella, PCR Not Detected (NotDetected); Sapovirus Not Detected (NotDetected); Shiga-like toxin E coli Not Detected (NotDetected); Shigella Enterovasive E coli Not Detected (NotDetected); Vibrio Cholerae Not Detected (NotDetected); Vibrio, PCR Not Detected (NotDetected); Yersinia Entercolitica, PCR Not Detected (NotDetected)
[2023-08-30 01:04] LABS: Calprotectin, Fecal 26 ug/g (0-120)
== END 2023-08-26 23:59 ==
LOC: LAB.DROPOF 10:53
PROVIDERS: PCP Internal Medicine Adolescent Medicine; Visit Provider Nurse Practitioner Family
DX: R10.84 Generalized abdominal pain (principal); R19.4 Change in bowel habit; R15.2 Fecal urgency; R19.7 Diarrhea, unspecified; R15.9 Full incontinence of feces; R14.0 Abdominal distension (gaseous); R11.0 Nausea
CPT/HCPCS: 83993; 87507

== ENCOUNTER 2023-11-05 09:30 | Outpatient (CLI) | payer BC, SELFPAY ==
--- NOTE | 2023-11-05 09:36 | MM_ITS ---
PROCEDURE INFORMATION: Exam: MG Bilateral Screening 3D Mammography Exam date and time: 11/05/2023 9:37 AM Age: 63 years old Clinical indication: Screening examination. Her paternal grandmother had breast cancer. TECHNIQUE: Imaging protocol: Bilateral Screening tomosynthesis and 2D mammography including computer-aided detection (CAD) when performed. COMPARISON: 1. MG DMDXUWAL DIG MAMM-DX UNI LT W/AVS W/CAD 10/19/2016 1:44 PM 2. MG DMDXUAVL DIG MAMM-DX UNI A/VWS-LT W/CAD 07/18/2016 1:50 PM 3. MG DMSB DIG MAMM-SCREEN MARIJA W/CAD 07/09/2016 1:43 PM 4. MG DMSB DIG MAMM-SCREEN MARIJA 06/07/2015 8:53 AM FINDINGS: MAMMOGRAPHY: Breast composition: The breasts are almost entirely fatty. Mass: No suspicious mass. Architectural distortion: None. Calcifications: No suspicious calcifications. Asymmetric density: None. Skin thickening: None. Axillary adenopathy: None. IMPRESSION: No mammographic evidence of malignancy. Annual screening is recommended unless otherwise clinically indicated. ASSESSMENT: BI-RADS Category 1: Negative
--- NOTE | 2023-11-05 09:36 | XR_ITS ---
FINAL REPORT TECHNIQUE: Bone mineral density was calculated of the lumbar spine and hip. CLINICAL HISTORY: POST MENOPAUSAL COMPARISON: None FINDINGS: Using L1-4, the bone mineral density of the spine is 0.939 g/cm2, corresponding to T-score of -1.1. Using the left hip, the bone mineral density of the femoral neck is 0.681 g/cm2, corresponding to a T-score of -1.5. Using the right hip, the bone mineral density of the femoral neck is 0.711 g/cm?, corresponding to a T-score of -1.2. NOTE: T-score: Standard deviation compared with peak bone mass of young adult mean. *Following the recommendations of the International Society of Bone densitometry, classification of hip BMD is based on the lower of two T-scores; total hip or femoral neck. IMPRESSION: Diminished bone mineral density of the bilateral hips consistent with low bone density. Normal bone mineral density of the lumbar spine. Reviewed, Interpreted and Dictated by Huey Franks III, MD Transcribed by Malu Sage Authenticated and [facility]
== END 2023-11-05 23:59 | disposition home or self-care (01) ==
LOC: RAD 09:31
PROVIDERS: PCP Internal Medicine Adolescent Medicine; Visit Provider Nurse Practitioner Family
DX: Z78.0 Asymptomatic menopausal state (principal); Z12.31 Encounter for screening mammogram for malignant neoplasm of breast
CPT/HCPCS: 77063; 77067; 77080

== ENCOUNTER 2024-12-26 21:41 | Observation (INO) | payer BC, SELFPAY ==
[2024-12-26] VITALS (8 sets, daily range): BP systolic 128–166; BP diastolic 62–105; PULSE 66–75; RESP 14–17; TEMP 36.7–36.9; O2SAT 93–98; BMI 33.8; BMI 34.6
--- NOTE | 2024-12-26 21:44 | ECG_ITS ---
APPROVED REPORT Exam: Resting ECG HR:78 bpm ECG Measurements Heart Rate 78 AXES NC 171 P 49 QRSd 93 QRS -20 QT 369 T -18 QTc 402 Conclusion SINUS RHYTHM WITH OCCASIONAL VENTRICULAR PREMATURE COMPLEXES ST DEVIATION AND MODERATE T-WAVE ABNORMALITY, CONSIDER ANTERIOR ISCHEMIA [-0.1+ mV T-WAVE IN V3/V4] No STEMI Electronically signed by : SEVEN SIMPSON, 12/27/2024 06:04:10
--- NOTE | 2024-12-26 21:51 | XR_ITS ---
PROCEDURE INFORMATION: Exam: XR Chest Exam date and time: 12/26/2024 9:55 PM Age: 64 years old Clinical indication: Pain; Chest pressure; Additional info: Cp TECHNIQUE: Imaging protocol: Radiologic exam of the chest. Views: 1 view. COMPARISON: CR XR CHEST 2V 10/12/2020 1:20 PM FINDINGS: Lungs: Unremarkable. No consolidation. Pleural spaces: Unremarkable. No pleural effusion. No pneumothorax. Heart/Mediastinum: Unremarkable. No cardiomegaly. Bones/joints: Left proximal humeral ORIF. No acute findings. IMPRESSION: No acute findings.
[2024-12-26] MEDS: ASPIRIN 81MG CHEWABLE TABLET 324 MG PO (21:58)
[2024-12-26 22:09] LABS: Basophils # 0.1 K/mm3 (0-0.2); Basophils % 0.5 % (0.1-2.0); Eosinophils # 0.2 Kmm3 (0.0-0.4); Eosinophils % 2.4 % (0.1-12.0); Hemoglobin 12.6 g/dL (12.2-16.2); Immature Granulocytes # 0.06 10^3uL; Immature Granulocytes % 0.6 %; Lymphocytes # 2.4 K/mm3 (0.7-4.5); Lymphocytes % 24.6 % (10-50); Mean Corpuscular HGB Conc 33.2 g/dL (31.8-35.4); Mean Corpuscular Hemoglobin 28.4 pg (27.0-31.2); Mean Corpuscular Volume 85.8 fl (81-99); Mean Platelet Volume 10.3 fl (7.4-10.4); Monocytes # 0.8 K/mm3 (0.1-1.0); Monocytes % 8.6 % (1.7-9.3); Neutrophils # 6.1 K/mm3 (1.8-7.8); Neutrophils % 63.3 % (37.0-80.0); Nucleated Red Blood Cells # 0 10^3/uL; Nucleated Red Blood Cells % 0 %; Platelet Count 290 K/mm3 (142-424); Red Blood Count 4.43 M/mm3 (4.20-5.40); Red Cell Distribution Width 13.8 % (11.5-17.5); Red Cell Distribution Width-SD 43.2 fL; White Blood Count 9.7 K/mm3 (4.8-10.8)
[2024-12-26 22:15] LABS: Alanine Aminotransferase 21 U/L (12-78); Albumin Level 4.3 g/dl (3.5-5.0); Albumin/Globulin Ratio 1.3 (1.1-1.8); Alkaline Phosphatase 75 U/L (38-126); Anion Gap 13.8 mEq/L (5-15); Aspartate Amino Transferase 30 U/L (14-36); Bilirubin,Total 0.6 mg/dl (0.2-1.3); Blood Urea Nitrogen 14 mg/dl (7-17); Carbon Dioxide 29 mmol/L (22.0-30.0); Chloride 96 mmol/L (98-107); Creatinine Clearance Estimated 75 mL/min (50-200); Estimated Glomerular Filt Rate 73 ml/min (>60); GFR (African American) 88 ML/MIN (>60); Globulin 3.3 g/dL (1.3-3.2); Glucose 165 mg/dl (74-100); Lipase 119 U/L (23-300); Sodium 136 mmol/L (136-145); Total Protein,Serum 7.6 g/dl (6.3-8.2)
[2024-12-26 22:19] LABS: Potassium 2.8 mmoL/L (3.5-5.1)
[2024-12-26 22:26] LABS: NT Pro Brain Natriuretic Pep. 45.8 pg/mL (0-125)
[2024-12-26 22:28] LABS: Troponin I < 0.01 ng/ml (0.00-0.034)
[2024-12-26] MEDS: MAGNESIUM SULFATE IN WATER 2 GM/50 ML PIGGYBACK IV (22:35)
[2024-12-26] MEDS: KCl 20mEq/100ml 100 ML 50 MEQ IV (22:36)
[2024-12-26] MEDS: POTASSIUM CHLORIDE 20MEQ TAB 60 MEQ PO (22:36)
[2024-12-26] MEDS: MAGNESIUM OXIDE 400MG TABLET 800 MG PO (22:36)
[2024-12-26 22:44] LABS: Activated Partial Thrombo Time 22.2 seconds (22.8-30.6)
[2024-12-26 22:48] LABS: Magnesium 1.4 mg/dl (1.6-2.3)
--- NOTE | 2024-12-26 22:53 | ED_ITS ---
Discharge Plan Disposition Patient Disposition: Admitted Clinical Impressions Clinical Impression: Chest pain, Heart palpitations Discharge ED Provider: Fili Corea General Chief Complaint: Chest Pain Stated Complaint: Chest Pain Time Seen by Provider: 12/26/24 21:44 Mode of Arrival: Wheelchair Source of Information: Patient Description of Symptoms (Recalled from ER Triage Doc. by RN): Patient to ED via wheelchair with complaints of left chest pain that radiated to left jaw and shoulder. Describes pain under left breast as crushing and aching. Patient states that this started approx 2100 while she was home resting. Similar episode occured last night approx same time. History of Present Illness HPI narrative: Please note that above description of symptoms, in this electronic medical record under categorization of recalled from ER triage doctor by RN are reflective of an initial nursing assessment, however, is not reflective of my full history and physical exam that was personally taken and clarified. Consequentially, this preceding description of symptoms, which may include the patient's categorized chief complaint in the EMR, do not reflect my personal clinical impression, and the ultimate description of history of present illness and patient stated complaints should be deferred to this section of the note. Unless stated otherwise or congruent with this section of the note, additional signs, symptoms, or incongruence should be interpreted as inaccurate with my clinical impression. Related Data Home Medications ?Medication ?Instructions ?Recorded ?Confirmed propranolol 40 mg tablet 40 mg PO DAILY BLOOD PRESSUR E 12/01/18 03/06/23 gabapentin 300 mg capsule 600 mg PO TID . 09/06/2006/22 cetirizine 10 mg tablet (Zyrtec) 10 mg PO DAILY allerg ies 02/19/23 03/06/23 lisinopril 20 1 tab PO DAILY bp 03/12/23 0 03/12/23 mg-hydrochlorothiazide 25 mg tablet Allergies Allergy/AdvReac Type Severity Reaction Status Date / Time No Known Allergies Allergy Verified 03/12/23 07:08 [facility] Disclaimer: The information contained in this section may have been updated after the patient was seen, as this information can be updated by other users. Medical History (Updated 12/26/24 @ 22:59 by Fili Corea MD) Kidney stone History of COVID-19 History of gastroesophageal reflux (GERD) Hemorrhoid History of cataract Hypertension History of anemia Crohn's disease Pyloric stenosis Surgical History H/O hemorrhoidectomy History of surgery History of resection of small bowel History of Hx of tonsillectomy History of hysterectomy Hx of shoulder surgery Family History Other Heart attack Stroke Social History Smoking Status: Never smoker second hand exposure: No alcohol intake: never substance use type: former substance user current occupational status: retired Travel in the last 8 weeks?: None household members: spouse housing: house number of children: 4 current occupation: [employer] current occupational exposures/hazards: Yes caffeine: Yes Have you lived/traveled outside US in past 30 days?: No Contact w/someone who lives/traveled outside US past 30 days?: No Exposure to someone with infectious disease in past 14 days?: No Do you have a fever (greater than 100.4 F or 38 C)?: No Have you tested positive for COVID-19?: No Exposed to someone with COVID-19 in past 14 days?: No Do you have a sore throat?: No Do you have a cough?: No Do you have any weakness?: No Do you have any diarrhea?: No Are you experiencing any unusual bleeding?: No Do you have any muscle aches/pain?: No Do you have any abdominal pain?: No Are you experiencing loss of taste or smell?: No Other Medical History Have you received the Flu Vaccine for this season: Yes Have you received the Pneumonia Vaccine: No ROS Obtained: Yes All systems reviewed & no additional complaints except as documented Physical Exam General General appearance: alert and in no apparent distress Neck Neck exam: Present trachea midline Chest Chest inspection: Present normal inspection and symmetric chest wall rise Respiratory Respiratory exam: Present normal lung sounds bilaterally; Absent respiratory distress, wheezes, stridor, accessory muscle use or prolonged expiratory phase Cardiovascular Cardiovascular exam: Present regular rate, normal rhythm and other (Pulses equal and symmetric in upper and lower extremities) Extremities Exam Extremities exam: Absent edema Neurological Exam Neurological exam: Present alert, oriented X3 and CN II-XII intact Skin Skin exam: Present warm and dry; Absent cyanosis, diaphoresis or pallor HEART Score HEART Score HEART Score assessment performed?: Yes History (anamnesis): Moderately suspicious ECG: Non-specific disturbance Age: 45-65 years Risk factors: 3 or more risk factors Troponin: </= normal limit HEART Score: 5 Critical Care Critical Care Time Critical Care Time: Yes (cardiac, metabolic) Attestation: On 12/26/24, the high probability of a clinically significant, sudden or life threatening deterioration of the following system(s) required my full and direct attention, intervention and personal management. The time I documented below is in addition to time spent performing reported procedures but includes the following listed in this critical care notation. Total Time Total Critical Care Time: 35 Medical Decision Making Medical Records Medical records reviewed: Yes I reviewed the patient's medical records. Jeffrey Inquiry Pt receiving controlled substance: No Jeffrey was queried for this patient: No Vital Signs Vital Signs: 12/26/24 21:44 12/26/24 21:47 12/26/24 22:00 Temperature 98.4 F Temperature Source Oral Pulse Rate 69 66 Pulse Rate [Right] 75 Respiratory Rate 15 15 14 Blood Pressure 136/79 133/69 Blood Pressure [Right Arm] 166/105 H Blood Pressure Mean [Right Arm] 125 Blood Pressure Source [Right Arm] Automatic Cuff Blood Pressure Position [Right Arm] Supine 02 Sat by Pulse Oximetry 95 98 93 L Oxygen Delivery Method Room Air Lab Data Labs: Lab Results 12/26/24 21:42: WBC 9.7, RBC 4.43, Hgb 12.6, Hct 38.0, MCV 85.8, MCH 28.4, MCHC 33.2, RDW 13.8, Plt Count 290, MPV 10.3, Neut % (Auto) 63.3, Lymph % (Auto) 24.6, [place] % (Auto) 8.6, Eos % (Auto) 2.4, Baso % (Auto) 0.5, Neut # (Auto) 6.1, Lymph # (Auto) 2.4, [place] # (Auto) 0.8, Eos # (Auto) 0.2, Baso # (Auto) 0.1, APTT 22.2 L, Sodium 136, Potassium 2.8 L*, Chloride 96 L, Carbon Dioxide 29, Anion Gap 13.8, BUN 14, Creatinine 0.80, Estimated Creat Clear 75, Estimated GFR 73, Est GFR ( Amer) 88, Glucose 165 H, Calcium 10.0, Magnesium 1.4 L, Total Bilirubin 0.6, AST 30, ALT 21, Alkaline Phosphatase 75, Troponin I < 0.01, NT-Pro-B Natriuret Pep 45.8, Total Protein 7.6, Albumin 4.3, Globulin 3.3 H, Albumin/Globulin Ratio 1.3, Lipase 119 12/26/24 21:42 12/26/24 21:42 Response Orders (Tests/Meds): ED MEDICATIONS Generic Name Dose Route Start Last Admin Trade Name Freq PRN Reason Stop Dose Admin Acetaminophen 650 mg 12/26/24 22:39 Acetaminophen 325mg Tab PO 01/25/25 22:38 Q4HP PRN Fever or Mild Pain (1-3) Hydrocodone Bitart/Acetaminophen 1 tab 12/26/24 22:39 Hydrocodone/Apap 5/325 Mg Tablet PO 01/25/25 22:38 Q4HP PRN Mild to Moderate Pain (1-6) Al Hydrox/Mg Hydrox/Simethicone 30 ml 12/26/24 22:39 Aluminum/Magnesium/Simethicone 30ml Udc PO 01/25/25 22:38 QIDP PRN Dyspepsia Enoxaparin Sodium 40 mg 12/27/24 09:00 Enoxaparin 40mg/0.4ml Syringe SUBCUT 01/26/25 08:59 DAILY PHILIP Potassium Chloride/Water 100 mls @ 50 mls/hr 12/26/24 22:28 12/26/24 22:36 Potassium Chloride 20meq/100ml Ivpb IV 12/27/24 04:27 50 mls/hr Q2H PHILIP Administration Magnesium Sulfate 2 gm in 50 mls @ 50 mls/hr 12/26/24 22:28 12/26/24 22:35 Magnesium Sulfate 2gm/50ml Premix IV 12/26/24 23:27 50 mls/hr ONCE ONE Administration Sodium Chloride 1,000 mls @ 75 mls/hr 12/26/24 22:45 Sod Chlor 0.9% 1000ml Bag IV 01/25/25 22:44 .[id number] PHILIP Ondansetron HCl 4 mg 12/26/24 22:39 Ondansetron 4mg/2ml Vial IV 01/25/25 22:38 Q8HP PRN Nausea Discontinued Medications Generic Name Dose Route Start Last Admin Trade Name Freq PRN Reason Stop Dose Admin Aspirin 324 mg 12/26/24 21:51 12/26/24 21:58 Aspirin 81mg Chewable Tablet PO 12/26/24 21:52 324 mg ONCE ONE Administration Magnesium Oxide 800 mg 12/26/24 22:28 12/26/24 22:36 Magnesium Oxide 400mg Tablet PO 12/26/24 22:29 800 mg ONCE ONE Administration Potassium Chloride 60 meq 12/26/24 22:28 12/26/24 22:36 Potassium Chloride 20meq Tab PO 12/26/24 22:29 60 meq ONCE ONE Administration ORDERS Category Date Time Status XR chest portable Stat Exams 12/26/24 21:51 Completed Basic Metabolic Panel AMLAB Lab 12/27/24 06:00 Ordered Complete Blood Count Auto Diff AMLAB Lab 12/27/24 06:00 Ordered Complete Blood Count Auto Diff Stat Lab 12/26/24 21:42 Completed Comprehensive Metabolic Panel Stat Lab 12/26/24 21:42 Completed HIV Combo Stat Lab 12/26/24 21:42 Received Hepatitis C Ab Qual. W/ RFX Stat Lab 12/26/24 21:55 Received Lipase Stat Lab 12/26/24 21:42 Completed Magnesium Stat Lab 12/26/24 21:42 Completed NT Pro Brain Natriuretic Pep. Stat Lab 12/26/24 21:42 Completed PTT [Activated Partial Thrombo Time] Stat Lab 12/26/24 21:42 Completed Trop I [Troponin I] Stat Lab 12/26/24 21:42 Completed Troponin I Q3H Lab 12/27/24 01:00 Ordered Troponin I Q3H Lab 12/27/24 04:00 Ordered MDM Narrative Medical Decision Narrative: 64-year-old female history of hypertension, hyperlipidemia, diabetes presenting with chest pain. She states that she had chest pain yesterday associated with palpitations, 12/25. She was not doing anything in particular. Had another episode today. Chest pain is more of a pressure, squeezing, substernal, radiates to her left side of her jaw and neck into her left shoulder. No associated vomiting, shortness of breath, diaphoresis. No syncopal or presyncopal episode. Not exertional, not positional, came in for further evaluation. History was obtained via conversation with patient and . On arrival, patient hemodynamically stable, alert, oriented x4, appropriate, GCS 15, moving all extremities spontaneously, pupils equal and reactive to light. Full physical exam performed and significant for well-appearing female no acute distress. Cardiopulmonary exam within normal limits. No murmurs gallops rubs. No lower extremity edema. Pulses equal and symmetric. Differential includes ACS, AK, pneumothorax, metabolic abnormality, endocrinologic abnormality, less likely be PE, among others. Patient was given fluids and aspirin for symptomatic management and correction of underlying abnormalities. Patient placed on continuous cardiac monitoring and continuous pulse ox with initial blood pressure 136/79, heart rate 69, saturation 95% on room air. Independent interpretation of EKG shows sinus rhythm intermittent PVCs. ST depressions and T wave inversions in lateral inferior leads consistent with old EKGs. ME 171, QRS 93, QTc 4 2. Leftward axis. Workup independently interpreted and significant for nonactionable CBC, but significant hypokalemia at 2.8. Troponin negative, also hypomagnesemia at 1.4. BNP negative. On independent interpretation of imaging, no acute cardiopulmonary space disease on chest x- ray. See radiology read for full review of final results. Heart score 5. Patient given 60 mill equivalents p.o. potassium, 60 mill equivalents IV potassium and 100 mg oral magnesium 2 g IV magnesium. Given patient having ectopy on the monitor and on EKG, symptomatic weakness palpitations and chest pain, to be admitted for further evaluation, electrolyte repletion. Hospital medicine was contacted and case was discussed at length, graciously accepted patient for admission. Executive Manager disclaimer Much of this encounter note is an electronic litigation legal assistant spoken language to printed text. Electronic litigation legal assistant of the spoken language may permit errors. Although I have reviewed the note, some errors may still exist.
[2024-12-26] MEDS: 0.9 % SODIUM CHLORIDE 1000ML 1,000 ML 75 ML IV (23:00)
[2024-12-26 23:02] LABS: HIV Combo NEGATIVE (Negative)
[2024-12-26 23:09] LABS: Hepatitis C Ab Qual. W/ RFX NEGATIVE (Negative)
[2024-12-27] VITALS: PULSE 60
[2024-12-27] MEDS: KCl 20mEq/100ml 100 ML 50 MEQ IV ×2 (00:28→02:28)
--- NOTE | 2024-12-27 02:23 | P.HP_ITS ---
<Statement entered by Gabriel Herrera MD - 12/27/24 15:56> Rounded on patient after nurse practitioner. Personally examined and interviewed patient. Agree with exam findings and care plan as documented. History of Present Illness *Admission Date: 12/26/24 *Reason for visit:: Chest pain *History of present illness: Ms. Escamilla is a 64-year-old female presents ER with complaints of chest pain. Patient's past medical history of hypertension, anemia, GERD, kidney stone, Crohn's disease, and pyloric stenosis. Patient reports she first started having chest pain that radiated to left shoulder neck and jaw last night. She states it happened again tonight at 2100 while she was watching TV. She reports the pain is more like a crushing pressure with accompanying shortness of breath. She reports the pain has not gone away but has gotten better. She reports some lightheadedness upon standing today. She also reports palpitations and generalized weakness. She states she is eating and drinking like normal. She states she has increased her water intake but has not changed her diet. Patient denies fever/chills, cough, congestion, runny nose, nausea, vomiting, diarrhea, constipation, headache, dizziness, or syncope. [facility] Disclaimer: The information contained in this section may have been updated after the patient was seen, as this information can be updated by other users. Medical History (Updated 12/27/24 @ 02:35 by Vanita Marinelli APRN) Kidney stone History of COVID-19 History of gastroesophageal reflux (GERD) Hemorrhoid History of cataract Hypertension History of anemia Crohn's disease Pyloric stenosis Surgical History H/O hemorrhoidectomy History of surgery History of resection of small bowel History of Hx of tonsillectomy History of hysterectomy Hx of shoulder surgery Family History Other Heart attack Stroke Social History Smoking Status: Never smoker second hand exposure: No alcohol intake: never substance use type: former substance user current occupational status: retired Travel in the last 8 weeks?: None household members: spouse housing: house number of children: 4 current occupation: [employer] current occupational exposures/hazards: Yes caffeine: Yes Have you lived/traveled outside US in past 30 days?: No Contact w/someone who lives/traveled outside US past 30 days?: No Exposure to someone with infectious disease in past 14 days?: No Do you have a fever (greater than 100.4 F or 38 C)?: No Have you tested positive for COVID-19?: No Exposed to someone with COVID-19 in past 14 days?: No Do you have a sore throat?: No Do you have a cough?: No Do you have any weakness?: No Do you have any diarrhea?: No Are you experiencing any unusual bleeding?: No Do you have any muscle aches/pain?: No Do you have any abdominal pain?: No Are you experiencing loss of taste or smell?: No Other Medical History Have you received the Flu Vaccine for this season: Yes Have you received the Pneumonia Vaccine: No Review of Systems Constitutional Constitutional: Denies chills, Denies fever(s) and Denies headache(s) ENT Ears, Nose, Mouth, and Throat: Denies dizziness, Denies headache(s) and Denies nasal discharge *Cardiovascular Cardiovascular: Reports chest pain, Reports dyspnea and Reports lightheadedness *Respiratory Respiratory: Denies cough and Reports dyspnea *Gastrointestinal Gastrointestinal: Denies constipation, Denies loose stools, Denies nausea and Denies vomiting *Genitourinary Genitourinary: Reports system reviewed and no additional complaints, except as documented *Musculoskeletal Musculoskeletal: Reports system reviewed and no additional complaints, except as documented *Neurologic Neurologic: Denies dizziness and Denies headache(s) Meds Home Medications and Allergies Home Medications ?Medication ?Instructions ?Recorded ?Confirmed ?Type propranolol 40 mg tablet 40 mg PO DAILY BLOOD PRESSUR E 12/01/18 12/27/24 History gabapentin 300 mg capsule 600 mg PO TID . 09/06/20 History lisinopril 20 1 tab PO DAILY bp 03/12/23 0 12/27/24 History mg-hydrochlorothiazide 25 mg tablet New Prescriptions to Start Prescriptions: Allergies Allergy/AdvReac Type Severity Reaction Status Date / Time No Known Allergies Allergy Verified 03/12/23 07:08 Exam Data for Last 24 hours Vital signs and Labs for Last 24 Hours: Temp Pulse Resp BP Pulse Ox O2 Del Method 98.3 F 66 15 128/62 96 Room Air 12/26/24 23:32 12/26/24 23:32 12/26/24 23:32 12/26/24 23:32 12/26/24 23:32 12/27/24 00:46 Laboratory Results - last 24 hr 12/26/24 21:42: WBC 9.7, RBC 4.43, Hgb 12.6, Hct 38.0, MCV 85.8, MCH 28.4, MCHC 33.2, RDW 13.8, Plt Count 290, MPV 10.3, Neut % (Auto) 63.3, Lymph % (Auto) 24.6, [place] % (Auto) 8.6, Eos % (Auto) 2.4, Baso % (Auto) 0.5, Neut # (Auto) 6.1, Lymph # (Auto) 2.4, [place] # (Auto) 0.8, Eos # (Auto) 0.2, Baso # (Auto) 0.1, APTT 22.2 L, Sodium 136, Potassium 2.8 L*, Chloride 96 L, Carbon Dioxide 29, Anion Gap 13.8, BUN 14, Creatinine 0.80, Estimated Creat Clear 75, Estimated GFR 73, Est GFR ( Amer) 88, Glucose 165 H, Calcium 10.0, Magnesium 1.4 L, Total Bilirubin 0.6, AST 30, ALT 21, Alkaline Phosphatase 75, Troponin I < 0.01, NT-Pro-B Natriuret Pep 45.8, Total Protein 7.6, Albumin 4.3, Globulin 3.3 H, Albumin/Globulin Ratio 1.3, Lipase 119, HCV Ab JACOB w/Rflx PCR Qn Negative, HIV Ag/Ab Combo Qual Negative I & O for Last 24 hours: Intake & Output 12/24/24 12/25/24 12/26/24 12/27/24 23:59 23:59 23:59 23:59 Intake Total 240 / 240 Balance 240 / 240 Weight 83.121 kg *Routine HEENT Exam Head: Present normocephalic and atraumatic Eye: Present EOMI and PERRL ENT: Present mucous membranes moist and oropharynx clear *Routine Neck Exam Neck: Present supple and full ROM *Routine Respiratory Exam Respiratory: Present CTA bilaterally, normal respiratory effort, able to speak in complete sentences and symmetric chest movement; Absent accessory muscle use or respiratory distress *Routine Cardiovascular Exam Cardiovascular: Present RRR, Normal S1 and Normal S2 *Routine Abdominal Exam Abdominal: Present soft and normoactive bowel sounds; Absent tenderness or distended *Routine Rectal Exam Rectal:: deferred *Routine Genitalia Exam Genitalia:: deferred *Routine Extremities Exam Extremities: Present full ROM, pulses intact and normal capillary refill; Absent edema *Routine Skin Exam Skin: Present dry and warm *Routine Neurological Exam Neurological: Present alert, oriented X3 and CN II-XII intact Assessment and Plan *Assessment and plan (1) Atypical chest pain: Status: Acute Category: Medical Code(s): R07.89 - Other chest pain Plan: Analgesics as needed Reviewed chest x-ray, negative for acute process (2) Hypokalemia: Status: Acute Category: Medical Code(s): E87.6 - Hypokalemia Plan: Potassium on admission 2.8 60 mEq of potassium p.o. and 20 mEq via IV every 2 hours x 3 ordered in the ER Repeat potassium in the a.m. (3) Hypomagnesemia: Status: Acute Category: Medical Code(s): E83.42 - Hypomagnesemia Plan: Magnesium on admission 1.4 Magnesium oxide 800 mg p.o. once and 2 g IV magnesium ordered in the ER Repeat magnesium level in the a.m. (4) On deep vein thrombosis (DVT) prophylaxis: Status: Acute Category: Medical Code(s): Z79.899 - Other residential (current) drug therapy Plan: Enoxaparin 40 mg subcu daily Plan Spoke with Sohan in the ER. My decision to admit is based on patient's potassium 2.8, magnesium 1.4, and atypical chest pain.
[2024-12-27 02:46] LABS: Troponin I < 0.01 ng/ml (0.00-0.034)
[2024-12-27 04:00] VITALS: BP 133/72; PULSE 60; PULSE 66; RESP 16; TEMP 36.6; O2SAT 96; BMI 34.9
--- NOTE | 2024-12-27 04:28 | PC.NURSE ---
New Admit. Pt is on electrolyte protocol, and pot is being replaced. v/s, ox4, RA, at bedside. Plan of care ongoing.
[2024-12-27 04:51] LABS: Basophils % 0.5 % (0.1-2.0); Chloride 100 mmol/L (98-107); Eosinophils # 0.2 Kmm3 (0.0-0.4); Eosinophils % 2.5 % (0.1-12.0); Hematocrit 35.8 % (37.0-47.0); Hemoglobin 11.6 g/dL (12.2-16.2); Immature Granulocytes # 0.03 10^3uL; Immature Granulocytes % 0.4 %; Lymphocytes % 26.1 % (10-50); Mean Corpuscular HGB Conc 32.4 g/dL (31.8-35.4); Mean Corpuscular Hemoglobin 27.9 pg (27.0-31.2); Mean Corpuscular Volume 86.1 fl (81-99); Mean Platelet Volume 10.3 fl (7.4-10.4); Monocytes # 0.7 K/mm3 (0.1-1.0); Neutrophils # 4.7 K/mm3 (1.8-7.8); Neutrophils % 61.5 % (37.0-80.0); Nucleated Red Blood Cells # 0 10^3/uL; Nucleated Red Blood Cells % 0 %; Platelet Count 255 K/mm3 (142-424); Potassium 3.4 mmoL/L (3.5-5.1); Red Blood Count 4.16 M/mm3 (4.20-5.40); Red Cell Distribution Width 13.8 % (11.5-17.5); Red Cell Distribution Width-SD 42.9 fL; Sodium 138 mmol/L (136-145); White Blood Count 7.7 K/mm3 (4.8-10.8)
[2024-12-27 04:54] LABS: Blood Urea Nitrogen 13 mg/dl (7-17); Creatinine Clearance Estimated 77 mL/min (50-200); Estimated Glomerular Filt Rate 85 ml/min (>60); GFR (African American) 103 ML/MIN (>60)
[2024-12-27 04:55] LABS: Anion Gap 11.4 mEq/L (5-15); Carbon Dioxide 30 mmol/L (22.0-30.0); Glucose 142 mg/dl (74-100)
[2024-12-27 05:08] LABS: Troponin I < 0.01 ng/ml (0.00-0.034)
--- NOTE | 2024-12-27 07:33 | EXP.DC.SUM ---
General Admission date:: 12/26/24 Discharge date: 12/27/24 HPI HPI HPI: Ms. Escamilla is a 64-year-old female presents ER with complaints of chest pain. Patient's past medical history of hypertension, anemia, GERD, kidney stone, Crohn's disease, and pyloric stenosis. Patient reports she first started having chest pain that radiated to left shoulder neck and jaw last night. She states it happened again tonight at 2100 while she was watching TV. She reports the pain is more like a crushing pressure with accompanying shortness of breath. She reports the pain has not gone away but has gotten better. She reports some lightheadedness upon standing today. She also reports palpitations and generalized weakness. She states she is eating and drinking like normal. She states she has increased her water intake but has not changed her diet. Patient denies fever/chills, cough, congestion, runny nose, nausea, vomiting, diarrhea, constipation, headache, dizziness, or syncope. Hospital Course Hospital Course Hospital Course: Ms. Escamilla is a 64-year-old female who presented with chest discomfort and was found to have significant electrolyte disturbances. Admitted overnight. Potassium and magnesium replaced with improvement in her symptoms. Chest discomfort resolved. Potassium improved by morning. Was monitored on telemetry with no events. Serial troponins were negative. Stable to discharge home with close follow-up with PCP for further management. Problems addressed as follows: Atypical chest pain: Hypokalemia Hypomagnesemia -Chest x-ray on presentation was negative for any acute process. EKG obtained that had nonspecific ST abnormalities. Potassium on admission 2.8. Magnesium 1.4. Received oral potassium x 3. Chest discomfort improved. Potassium by morning improved to 3.4. Kidney function normal with BUN 13, creatinine 0.7. Repeat EKG obtained on morning of discharge, compared to EKG from 01/2020. Appears to have very similar ST abnormalities in numerous leads. Given stable findings compared to previous EKG and improvement in symptoms as well as electrolytes, stable discharge home with close follow-up with PCP for further management as an outpatient. Would recommend considering outpatient stress test or cardiology eval. Exam Data for Last 24 hours Vital signs and Labs for Last 24 Hours: Temp Pulse Resp BP Pulse Ox O2 Del Method 97.9 F 66 16 133/72 96 Room Air 12/27/24 04:00 12/27/24 04:00 12/27/24 04:00 12/27/24 04:00 12/27/24 04:00 12/27/24 06:26 Laboratory Results - last 24 hr 12/26/24 21:42: WBC 9.7, RBC 4.43, Hgb 12.6, Hct 38.0, MCV 85.8, MCH 28.4, MCHC 33.2, RDW 13.8, Plt Count 290, MPV 10.3, Neut % (Auto) 63.3, Lymph % (Auto) 24.6, [place] % (Auto) 8.6, Eos % (Auto) 2.4, Baso % (Auto) 0.5, Neut # (Auto) 6.1, Lymph # (Auto) 2.4, [place] # (Auto) 0.8, Eos # (Auto) 0.2, Baso # (Auto) 0.1, APTT 22.2 L, Sodium 136, Potassium 2.8 L*, Chloride 96 L, Carbon Dioxide 29, Anion Gap 13.8, BUN 14, Creatinine 0.80, Estimated Creat Clear 75, Estimated GFR 73, Est GFR ( Amer) 88, Glucose 165 H, Calcium 10.0, Magnesium 1.4 L, Total Bilirubin 0.6, AST 30, ALT 21, Alkaline Phosphatase 75, Troponin I < 0.01, NT-Pro-B Natriuret Pep 45.8, Total Protein 7.6, Albumin 4.3, Globulin 3.3 H, Albumin/Globulin Ratio 1.3, Lipase 119, HCV Ab JACOB w/Rflx PCR Qn Negative, HIV Ag/Ab Combo Qual Negative 12/27/24 01:49: Troponin I < 0.01 12/27/24 04:35: WBC 7.7, RBC 4.16 L, Hgb 11.6 L, Hct 35.8 L, MCV 86.1, MCH 27.9, MCHC 32.4, RDW 13.8, Plt Count 255, MPV 10.3, Neut % (Auto) 61.5, Lymph % (Auto) 26.1, [place] % (Auto) 9.0, Eos % (Auto) 2.5, Baso % (Auto) 0.5, Neut # (Auto) 4.7, Lymph # (Auto) 2.0, [place] # (Auto) 0.7, Eos # (Auto) 0.2, Baso # (Auto) 0.0, Sodium 138, Potassium 3.4 L D, Chloride 100, Carbon Dioxide 30, Anion Gap 11.4, BUN 13, Creatinine 0.70, Estimated Creat Clear 77, Estimated GFR 85, Est GFR ( Amer) 103, Glucose 142 H, Calcium 9.0, Troponin I < 0.01 I & O for Last 24 hours: Intake & Output 12/24/24 12/25/24 12/26/24 12/27/24 23:59 23:59 23:59 23:59 Intake Total 240 / 240 Output Total 0 / 0 Balance 240 / 240 Weight 83.121 kg 84.056 kg Constitutional Constitutional: no acute distress, obese and cooperative *Routine HEENT Exam Head: Present normocephalic Eye: Present EOMI and PERRL ENT: Present mucous membranes moist *Routine Neck Exam Neck: Present supple; Absent lymphadenopathy *Routine Respiratory Exam Respiratory: Present CTA bilaterally; Absent wheezes *Routine Cardiovascular Exam Cardiovascular: Present RRR *Routine Abdominal Exam Abdominal: Present soft and normoactive bowel sounds; Absent tenderness *Routine Rectal Exam Patient deferred: visual exam *Routine Exam Patient deferred: external exam *Routine Extremities Exam Extremities: Absent cyanosis, clubbing or edema *Routine Skin Exam Skin: Present warm; Absent rash *Routine Neurological Exam Neurological: Present alert, oriented X3 and moving all extremities; Absent altered mental status Results Data Completed and Pending Labs on day of discharge: Labs from last 24 hours 12/27/24 12/27/24 12/26/24 04:35 01:49 21:42 WBC 7.7 9.7 RBC 4.16 L 4.43 Hgb 11.6 L 12.6 Hct 35.8 L 38.0 MCV 86.1 85.8 MCH 27.9 28.4 MCHC 32.4 33.2 RDW 13.8 13.8 Plt Count 255 290 MPV 10.3 10.3 Neut % (Auto) 61.5 63.3 Lymph % (Auto) 26.1 24.6 [place] % (Auto) 9.0 8.6 Eos % (Auto) 2.5 2.4 Baso % (Auto) 0.5 0.5 Neut # (Auto) 4.7 6.1 Lymph # (Auto) 2.0 2.4 [place] # (Auto) 0.7 0.8 Eos # (Auto) 0.2 0.2 Baso # (Auto) 0.0 0.1 APTT 22.2 L Sodium 138 136 Potassium 3.4 L D 2.8 L* Chloride 100 96 L Carbon Dioxide 30 29 Anion Gap 11.4 13.8 BUN 13 14 Creatinine 0.70 0.80 Estimated Creat Clear 77 75 Estimated GFR 85 73 Est GFR ( Amer) 103 88 Glucose 142 H 165 H Calcium 9.0 10.0 Magnesium 1.4 L Total Bilirubin 0.6 AST 30 ALT 21 Alkaline Phosphatase 75 Troponin I < 0.01 < 0.01 < 0.01 NT-Pro-B Natriuret Pep 45.8 Total Protein 7.6 Albumin 4.3 Globulin 3.3 H Albumin/Globulin Ratio 1.3 Lipase 119 HCV Ab JACOB w/Rflx PCR Qn Negative HIV Ag/Ab Combo Qual Negative DS: Diagnosis Discharge Diagnosis (1) Atypical chest pain: Status: Acute Code(s): R07.89 - Other chest pain (2) Hypokalemia: Status: Acute Code(s): E87.6 - Hypokalemia (3) Hypomagnesemia: Status: Acute Code(s): E83.42 - Hypomagnesemia (4) On deep vein thrombosis (DVT) prophylaxis: Status: Acute Code(s): Z79.899 - Other termite helper (current) drug therapy Meds Home Medications and Allergies Home Medications ?Medication ?Instructions ?Recorded ?Confirmed ?Type propranolol 40 mg tablet 40 mg PO DAILY 12/01/18 12/27/24 History lisinopril 20 1 tab PO DAILY 03/12/23 12/27/24 History mg-hydrochlorothiazide 25 mg tablet bupropion HCl 150 mg 24 hr tablet, 150 mg PO DAILY 12/27/24 12/27/24 History extended release gabapentin 600 mg tablet 600 mg PO TID 12/27/24 12/27/24 History hydrocortisone acetate 25 mg 25 mg VT BID 12/27/24 12/27/24 History rectal suppository (Anucort-HC) metformin 500 mg tablet,extended 500 mg PO QPMWITHMEAL 12/27/24 12/27/24 History release 24 hr pantoprazole 40 mg tablet,delayed 40 mg PO AM 12/27/24 12/27/24 History release potassium chloride 10 mEq 20 meq (2 x 10 mEq) PO BID 30 days 12/27/24 12/27/24 Rx capsule,extended release #0 caps New Prescriptions to Start Prescriptions: Allergies Allergy/AdvReac Type Severity Reaction Status Date / Time No Known Allergies Allergy Verified 03/12/23 07:08 Discharge Plan Disposition Patient Disposition: Home, Self-Care Condition: Fair Follow up Plan Follow up with: Ernesto Vega MD [Primary Care Provider, Internal Medicine] - Enter time for follow up Referral Note: Please call office for follow up appointment Prescriptions/Medication Reconciliation: Continued propranolol 40 mg tablet 40 mg PO DAILY lisinopril-hydrochlorothiazide 20-25 mg Tablet 1 tab PO DAILY gabapentin 600 mg tablet 600 mg PO TID Patient Comments: TAKE 1 TABLET BY MOUTH THREE TIMES DAILY hydrocortisone acetate [Anucort-HC] 25 mg suppository 25 mg VT BID pantoprazole 40 mg tablet,delayed release (DR/EC) 40 mg PO AM metformin 500 mg tablet extended release 24 hr 500 mg PO QPMWITHMEAL bupropion HCl 150 mg tablet extended release 24 hr 150 mg PO DAILY Patient Comments: TAKE 1 TABLET BY MOUTH ONCE DAILY Changed potassium chloride 10 mEq capsule, extended release 20 meq PO BID 30 Days Qty: 0 0RF Patient Comments: TAKE 1 CAPSULE BY MOUTH ONCE DAILY WITH FOOD Problem Reconciliation Problems Reviewed?: Yes Patient Discharge Instructions ACTIVITY: Continue current activity DIET: continue same diet Print Language: Polish Providers Primary Care Provider: Ernesto Vega Admit Provider: Gabriel Herrera Attending Provider: Gabriel Herrera
[2024-12-27 08:00] VITALS: BP 133/71; PULSE 64; RESP 18; TEMP 36.7; O2SAT 96
[2024-12-27] MEDS: ENOXAPARIN 40MG/0.4ML SYRINGE 40 MG SUBCUT (08:29)
--- NOTE | 2024-12-27 09:43 | HMH.PHAINT1 ---
Pharmacy Intervention Comments: MEDICATION RECONCILIATION COMPLETE USING EXTERNAL PHARMACY FILL HISTORY AND MESSI REPORT.
[2024-12-27 12:00] VITALS: BP 135/67; PULSE 72; RESP 16; TEMP 36.7; O2SAT 97
--- NOTE | 2024-12-27 12:05 | ECG_ITS ---
APPROVED REPORT Exam: Resting ECG HR:69 bpm ECG Measurements Heart Rate 69 AXES [place] 166 P 39 QRSd 86 QRS -10 QT 385 T -26 QTc 404 Conclusion SINUS RHYTHM LOW QRS VOLTAGE IN PRECORDIAL LEADS [QRS DEFLECTION < 1.0 mV IN CHEST LEADS] ST DEVIATION AND MODERATE T-WAVE ABNORMALITY, CONSIDER ANTERIOR ISCHEMIA [-0.1+ mV T-WAVE IN V3/V4] ABNORMAL ECG UNCONFIRMED REPORT Electronically signed by : Ernesto Vega MD 12/28/2024 08:36:04
--- NOTE | 2024-12-28 11:06 | SW/DCPLANNER ---
Spoke with patient on the phone. Patient stated that she is doing okay just feels like she has been ran over by a [employer]. Patient stated that she is aware of her upcoming appointment. Patient stated that she was able to get her new medicine picked up. Patient stated that she has no concerns or questions at this time. Ashley Lopez
== END 2024-12-27 12:50 | disposition home or self-care (01) ==
LOC: ER 21:51 → 2ND 22:45
PROVIDERS: Nurse Practitioner Family; Admitting Provider Internal Medicine Adolescent Medicine; Emergency Provider Emergency Medicine; PCP Internal Medicine Adolescent Medicine; Visit Provider Internal Medicine Adolescent Medicine
DX: R07.89 Other chest pain (principal); R00.2 Palpitations; R68.84 Jaw pain; M25.512 Pain in left shoulder; M54.2 Cervicalgia; E87.6 Hypokalemia; E83.42 Hypomagnesemia; E66.9 Obesity, unspecified; I10 Essential (primary) hypertension; E11.9 Type 2 diabetes mellitus without complications; K21.9 Gastro-esophageal reflux disease without esophagitis; Z68.35 Body mass index [BMI] 35.0-35.9, adult; Z79.899 Other long term (current) drug therapy; Z79.84 Long term (current) use of oral hypoglycemic drugs; Z82.49 Family history of ischemic heart disease and other diseases of the circulatory system
CPT/HCPCS: 96361 ×2; 96365; 96366; 96367; 96376 ×2; 36415; 71045; 80048; 80053; 83690; 83735; 83880; 84484; 85025; 85730; 86803; 87389; 93005; G0378; J1650; J3475; J3480; J7030

== ENCOUNTER 2024-12-31 09:18 | Outpatient (CLI) | payer BC, SELFPAY ==
[2024-12-31 09:36] LABS: Hematocrit 37.0 % (37.0-47.0); Hemoglobin 11.8 g/dL (12.2-16.2); Immature Granulocytes % 0.5 %; Mean Corpuscular HGB Conc 31.9 g/dL (31.8-35.4); Mean Corpuscular Hemoglobin 27.8 pg (27.0-31.2); Mean Corpuscular Volume 87.1 fl (81-99); Nucleated Red Blood Cells % 0 %; Platelet Count 252 K/mm3 (142-424); Red Blood Count 4.25 M/mm3 (4.20-5.40); Red Cell Distribution Width-SD 44.0 fL; White Blood Count 9.4 K/mm3 (4.8-10.8)
[2024-12-31 10:08] LABS: Anion Gap 12.6 mEq/L (5-15); Blood Urea Nitrogen 13 mg/dl (7-17); Calcium 9.8 mg/dl (8.4-10.2); Carbon Dioxide 30 mmol/L (22.0-30.0); Chloride 98 mmol/L (98-107); Creatinine,Serum 0.70 mg/dl (0.52-1.04); Estimated Glomerular Filt Rate 85 ml/min (>60); GFR (African American) 103 ML/MIN (>60); Glucose 147 mg/dl (74-100); Magnesium 1.5 mg/dl (1.6-2.3); Potassium 3.6 mmoL/L (3.5-5.1); Sodium 137 mmol/L (136-145)
[2024-12-31 10:24] LABS: Free Thyroxine Index 3.0 ug/dL (5.93-13.13); T4 (Thyroxine) 10.4 ug/dl (5.53-11.0); Triiodothryronine (T3) Uptake 29 % (23.5-40.5)
[2024-12-31 10:37] LABS: Thyroid Stimulating Hormone 1.58 uIU/mL (0.465-4.68)
[2024-12-31 12:00] VITALS: BP 146/74; PULSE 55; RESP 16; O2SAT 98
[2024-12-31] MEDS: MAGNESIUM SULFATE IN WATER 2 GM/50 ML PIGGYBACK IV (12:00)
[2024-12-31 12:30] VITALS: BP 139/72; PULSE 64; RESP 17
[2024-12-31 13:00] VITALS: BP 137/65; PULSE 64; RESP 17
== END 2024-12-31 13:10 | disposition home or self-care (01) ==
LOC: LAB 09:21 → INF 11:44
PROVIDERS: PCP Internal Medicine Adolescent Medicine; Visit Provider Physician Assistant
DX: E87.6 Hypokalemia (principal)
CPT/HCPCS: 36415; 80048; 83735; 84436; 84443; 84479; 85025; 96365; J3475

== ENCOUNTER 2025-01-04 09:47 | Outpatient (CLI) | payer BC, SELFPAY ==
[2025-01-04 10:53] LABS: Anion Gap 16.0 mEq/L (5-15); Blood Urea Nitrogen 10 mg/dl (7-17); Calcium 9.5 mg/dl (8.4-10.2); Carbon Dioxide 28 mmol/L (22.0-30.0); Chloride 100 mmol/L (98-107); Creatinine,Serum 0.70 mg/dl (0.52-1.04); Estimated Glomerular Filt Rate 85 ml/min (>60); GFR (African American) 103 ML/MIN (>60); Glucose 123 mg/dl (74-100); Magnesium 1.4 mg/dl (1.6-2.3); Potassium 4.0 mmoL/L (3.5-5.1); Sodium 140 mmol/L (136-145)
== END 2025-01-04 23:59 | disposition home or self-care (01) ==
LOC: LAB 09:49
PROVIDERS: PCP Internal Medicine Adolescent Medicine; Visit Provider Internal Medicine Adolescent Medicine
DX: E87.6 Hypokalemia (principal); E83.42 Hypomagnesemia
CPT/HCPCS: 36415; 80048; 83735

== ENCOUNTER 2025-01-12 08:36 | Outpatient (CLI) | payer BC, SELFPAY ==
[2025-01-12 09:22] LABS: Anion Gap 17.4 mEq/L (5-15); Blood Urea Nitrogen 18 mg/dl (7-17); Calcium 9.8 mg/dl (8.4-10.2); Carbon Dioxide 29 mmol/L (22.0-30.0); Chloride 96 mmol/L (98-107); Creatinine,Serum 0.80 mg/dl (0.52-1.04); Estimated Glomerular Filt Rate 73 ml/min (>60); GFR (African American) 88 ML/MIN (>60); Glucose 157 mg/dl (74-100); Magnesium 1.2 mg/dl (1.6-2.3); Potassium 3.4 mmoL/L (3.5-5.1); Sodium 139 mmol/L (136-145)
[2025-01-12 10:46] LABS: Vitamin B12 239 pg/mL (239-931)
== END 2025-01-12 23:59 | disposition home or self-care (01) ==
LOC: LAB 08:37
PROVIDERS: PCP Internal Medicine Adolescent Medicine; Visit Provider Physician Assistant
DX: E87.6 Hypokalemia (principal); E83.42 Hypomagnesemia; R20.0 Anesthesia of skin
CPT/HCPCS: 36415; 80048; 82607; 83735

== ENCOUNTER 2025-01-12 11:23 | Emergency (ER) | payer BC, SELFPAY ==
--- NOTE | 2025-01-12 11:25 | ECG_ITS ---
APPROVED REPORT Exam: Resting ECG HR:60 bpm ECG Measurements Heart Rate 60 AXES AR 157 P 48 QRSd 88 QRS -5 QT 403 T -27 QTc 403 Conclusion Normal sinus rhythm without acute ST or T wave changes concerning for ischemia T wave inversions in 3 V1 and V2 V3 V4 V5 V6 Electronically signed by : Junie Soni, 01/13/2025 07:11:21
[2025-01-12 11:26] VITALS: BP 156/76; PULSE 60; RESP 16; TEMP 36.6; O2SAT 98; BMI 33.8
--- NOTE | 2025-01-12 11:46 | XR_ITS ---
FINAL REPORT CLINICAL HISTORY: Chest pain/pressure, low magnesium COMPARISON: 12/26/2024 FINDINGS: SINGLE VIEW CHEST The heart is normal in size. The mediastinum is unremarkable. The lungs are clear. There is no pneumothorax. IMPRESSION: No acute process. Reviewed, Interpreted and Dictated by Citlali Coates MD Transcribed by Jackie López Authenticated and [facility]
--- NOTE | 2025-01-12 11:49 | ED_ITS ---
Discharge Plan Disposition Patient Disposition: Home, Self-Care Condition: Good Prescriptions Prescriptions: No Action propranolol 40 mg tablet 40 mg PO DAILY lisinopril-hydrochlorothiazide 20-25 mg Tablet 1 tab PO DAILY gabapentin 600 mg tablet 600 mg PO TID Patient Comments: TAKE 1 TABLET BY MOUTH THREE TIMES DAILY hydrocortisone acetate [Anucort-HC] 25 mg suppository 25 mg UT BID pantoprazole 40 mg tablet,delayed release (DR/EC) 40 mg PO AM metformin 500 mg tablet extended release 24 hr 500 mg PO QPMWITHMEAL bupropion HCl 150 mg tablet extended release 24 hr 150 mg PO DAILY Patient Comments: TAKE 1 TABLET BY MOUTH ONCE DAILY potassium chloride 10 mEq capsule, extended release 20 meq PO BID 30 Days Qty: 0 0RF Patient Comments: TAKE 1 CAPSULE BY MOUTH ONCE DAILY WITH FOOD Referrals Follow up/Referrals: Ernesto Vega MD [Primary Care Provider, Internal Medicine] - See instructions Activity Restrictions/Add. Instructions Additional Instructions/Restrictions: Please return to the emergency department with any worsening signs or symptoms, please follow-up with your PCP in the upcoming days to recheck your electrolytes, please continue all your medications as prescribed. Clinical Impressions Clinical Impression: Atypical chest pain, Hypokalemia, Hypomagnesemia Instructions Patient Instructions: DI for Atypical Chest Pain, DI for Hypokalemia, Magnesium Print Language Print Language: Frisian Discharge ED Provider: Junie Soni General Chief Complaint: Chest Pain Stated Complaint: chest pain Time Seen by Provider: 01/12/25 11:24 Mode of Arrival: Ambulatory Source of Information: Patient Description of Symptoms (Recalled from ER Triage Doc. by RN): Patient states she has been having chest discomfort since about 0530 this morning after she woke up. Patient states she was seen at PCP office this morning, had labs drawn and was told her magnesium was low. PCP office had called ER and told us that patient Magnesium was 1.2 and was being sent to the ER. History of Present Illness HPI narrative: 70-year-old female presents the emergency department with chest pain, describes it as a squeezing , pain that started this morning, patient also endorses GERD symptomatology with her pain, currently ache 7 out of 10, at rest, patient also was slated to see her outpatient provider today, who called her this morning on her laboratory studies, with concern of low magnesium, instructing her to come to the emergency department. Patient has any fever or chills, denies any shortness of breath, denies any vomiting, admits to nausea, denies any abdominal pain, denies any constipation, does admit to diarrhea at times, denies any urinary type symptomatology, patient is a non-smoker, denies any alcohol or drug use, other past medical history is consistent with generalized anxiety disorder, hypertension, type 2 diabetes, GERD, recently she was placed on PPI back in October 2024 for recurrent GERD. As an outpatient the patient's magnesium level was found to be around 1.2. MD complaint: chest pain Related Data Home Medications ?Medication ?Instructions ?Recorded ?Confirmed propranolol 40 mg tablet 40 mg PO DAILY 12/01/1809/22 lisinopril 20 1 tab PO DAILY 03/12/2309/22 mg-hydrochlorothiazide 25 mg tablet bupropion HCl 150 mg 24 hr tablet, 150 mg PO DAILY 12/31/24 extended release gabapentin 600 mg tablet 600 mg PO TID 12/27/2412/31 hydrocortisone acetate 25 mg 25 mg UT BID 12/27/2409/22 rectal suppository (Anucort-HC) metformin 500 mg tablet,extended 500 mg PO QPMWITHMEAL 12/27/24 12/31/24 release 24 hr pantoprazole 40 mg tablet,delayed 40 mg PO AM 12/27/24 12/31/24 release Previous Rx's ?Medication ?Instructions ?Recorded potassium chloride 10 mEq 20 meq (2 x 10 mEq) PO BID 3 0 days 12/27/24 capsule,extended release #0 caps Allergies Allergy/AdvReac Type Severity Reaction Status Date / Time No Known Allergies Allergy Verified 01/12/25 11:32 [facility] Disclaimer: The information contained in this section may have been updated after the patient was seen, as this information can be updated by other users. Medical History (Updated 01/12/25 @ 14:10 by MATY Guerrero) Fracture of proximal humerus Fracture of humeral head, left, closed Kidney stone History of COVID-19 History of gastroesophageal reflux (GERD) Hemorrhoid History of cataract Hypertension History of anemia Crohn's disease Pyloric stenosis Surgical History History of hysterectomy H/O hemorrhoidectomy History of surgery History of resection of small bowel History of Hx of tonsillectomy History of hysterectomy Hx of shoulder surgery Family History Other Heart attack Stroke Social History Smoking Status: Never smoker second hand exposure: No alcohol intake: never substance use type: former substance user current occupational status: retired Travel in the last 8 weeks?: None household members: spouse housing: house number of children: 4 current occupation: [employer] current occupational exposures/hazards: Yes caffeine: Yes Have you lived/traveled outside [place] in past 30 days?: No Contact w/someone who lives/traveled outside US past 30 days?: No Exposure to someone with infectious disease in past 14 days?: No Do you have a fever (greater than 100.4 F or 38 C)?: No Have you tested positive for COVID-19?: No Exposed to someone with COVID-19 in past 14 days?: No Do you have a sore throat?: No Do you have a cough?: No Do you have any weakness?: No Do you have any diarrhea?: No Are you experiencing any unusual bleeding?: No Do you have any muscle aches/pain?: No Do you have any abdominal pain?: No Are you experiencing loss of taste or smell?: No Other Medical History Have you received the Flu Vaccine for this season: No Have you received the Pneumonia Vaccine: No ROS Obtained: Yes All systems reviewed & no additional complaints except as documented Physical Exam General General appearance: alert and in no apparent distress Head Head exam: atraumatic and normocephalic Eye Eye exam: Present normal appearance, PERRL and EOMI Neck Neck exam: Present full ROM; Absent meningismus Chest Chest inspection: Present normal inspection Respiratory Respiratory exam: Absent respiratory distress, wheezes, stridor, accessory muscle use or prolonged expiratory phase Cardiovascular Cardiovascular exam: Present normal rhythm and other (Pulses equal and symmetric in bilateral upper and lower extremities) Abdominal Exam Abdominal exam: Absent distention Extremities Exam Extremities exam: Absent edema Neurological Exam Neurological exam: Present alert Psychiatric Psychiatric exam: Present normal affect Skin Skin exam: Present warm and dry HEART Score HEART Score HEART Score assessment performed?: Yes HEART Score: 2 Critical Care Critical Care Time Critical Care Time: No Medical Decision Making Medical Records Medical records reviewed: Yes I reviewed the patient's medical records. Jeffrey Inquiry Pt receiving controlled substance: No Jeffrey was queried for this patient: No Vital Signs Vital Signs: 01/12/25 11:26 Temperature 97.8 F Temperature Source Oral Pulse Rate [Right Brachial] 60 Respiratory Rate 16 Blood Pressure [Right Arm] 156/76 H Blood Pressure Mean [Right Arm] 102 Blood Pressure Source [Right Arm] Automatic Cuff 02 Sat by Pulse Oximetry 98 Oxygen Delivery Method Room Air Lab Data Lab results reviewed: Yes I reviewed the patient's lab results. Labs: Lab Results 01/12/25 11:35: WBC 10.0, RBC 4.40, Hgb 12.3, Hct 37.6, MCV 85.5, MCH 28.0, MCHC 32.7, RDW 13.3, Plt Count 279, MPV 10.4, Neut % (Auto) 72.4, Lymph % (Auto) 17.8, [place] % (Auto) 7.1, Eos % (Auto) 1.9, Baso % (Auto) 0.5, Neut # (Auto) 7.3, Lymph # (Auto) 1.8, [place] # (Auto) 0.7, Eos # (Auto) 0.2, Baso # (Auto) 0.1, PT 11.0, INR 0.99, Sodium 137, Potassium 3.0 L, Chloride 95 L, Carbon Dioxide 30, BUN 17, Creatinine 0.70, Estimated Creat Clear 75, Estimated GFR 85, Est GFR ( Amer) 103, Glucose 116 H D, Calcium 8.9, Magnesium 1.2 L, Total Bilirubin 0.4, AST 30, ALT 23, Alkaline Phosphatase 89, Troponin I < 0.01, NT-Pro-B Natriuret Pep 44.8, Total Protein 7.1, Albumin 4.3 01/12/25 12:56: Urine Color Yellow, Urine Appearance Clear, Urine pH 6.0, Ur Specific [place] 1.015, Urine Protein Negative, Urine Glucose (UA) Negative, Urine Ketones Negative, Urine Blood Negative, Urine Nitrate Negative, Urine Bilirubin Negative, Urine Urobilinogen 0.2, Ur Leukocyte Esterase 1+ A, Urine RBC Occasional, Urine WBC 5-10, Ur Squamous Epith Cells 3-5, Ur Renal Epithelial Cell Occasional, Urine Bacteria None 01/12/25 11:35 01/12/25 11:35 Response Orders (Tests/Meds): ED MEDICATIONS Discontinued Medications Generic Name Dose Route Start Last Admin Trade Name Shabana PRN Reason Stop Dose Admin Aspirin 325 mg 01/12/25 11:55 01/12/25 11:58 Aspirin 325mg Tablet PO 01/12/25 11:56 325 mg ONCE ONE Administration Magnesium Sulfate 2 gm in 50 mls @ 50 mls/hr 01/12/25 12:02 01/12/25 12:11 Magnesium Sulfate 2gm/50ml Premix IV 01/12/25 13:01 50 mls/hr ONCE ONE Administration Morphine Sulfate 4 mg 01/12/25 11:46 01/12/25 11:52 Morphine 4mg/Ml Syringe IV 01/12/25 11:47 4 mg ONCE ONE Administration Ondansetron HCl 4 mg 01/12/25 11:46 01/12/25 11:52 Ondansetron 4mg/2ml Vial IV 01/12/25 11:47 4 mg ONCE ONE Administration Potassium Chloride 60 meq 01/12/25 12:02 01/12/25 12:10 Potassium Chloride 20meq Tab PO 01/12/25 12:03 60 meq ONCE ONE Administration ORDERS Category Date Time Status XR chest portable Stat Exams 01/12/25 11:46 Completed Complete Blood Count Auto Diff Stat Lab 01/12/25 11:35 Completed Comprehensive Metabolic Panel Stat Lab 01/12/25 11:35 Results Magnesium Stat Lab 01/12/25 11:35 Results NT Pro Brain Natriuretic Pep. Stat Lab 01/12/25 11:35 Results PT INR [Prothrombin Time INR] Stat Lab 01/12/25 11:35 Completed Troponin I Q3H Lab 01/12/25 15:00 Ordered Troponin I Q3H Lab 01/12/25 18:00 Ordered Troponin I Stat Lab 01/12/25 11:35 Results Urinalysis and Microscopic Stat Lab 01/12/25 12:56 Completed Urine Culture Stat Micro 01/12/25 12:56 Received MDM Narrative Medical Decision Narrative: 64-year-old female presents emergency department with chest pain, concern for electrolyte abnormalities, differential diagnose include but not limited to, ACS, cardiac arrhythmia, electrolyte disturbance, GERD, panic attack, anxiety reaction, pneumonia, pneumothorax, among others. Discussed the patient's case with the attending physician Dr.Zachariah Will obtain basic laboratory studies, EKG, magnesium level, proBNP, troponin, PT/INR, CXR, will give 4 mg IV morphine 4 mg IV Zofran for nausea and pain, give 325 mg p.o. aspirin for pain. CBC unremarkable CMP is noted for mild hypokalemia at 3, hypomagnesia at 1.2 replace with 60 mg once a p.o. potassium, and 2 g IV magnesium. proBNP within normal limits Troponin is less than 0.01 Coags negative I reviewed the patient's chest x-ray along the corresponding radiologic report, no acute process. Urinalysis is notable for 1+ leukocyte esterase, negative nitrites otherwise unremarkable. Rexamination of the patient at approximately 2 PM, patient states she is feeling better, she is hemodynamically stable, chest pain has subsided, no other acute complaints, she is remained hemodynamically with her time in the emergency department, patient will need to follow-up with her PCP regarding her electrolyte abnormalities, most likely in the setting of diabetes/GI losses,/recent PPI use, EKG shows no ischemic changes, reviewed the patient's EKG along with the attending physician at approximately 1126, NSR, UT interval within was, QT interval was 403/403, no ST segment changes. Patient was understanding and agreed with the treatment plan/discharge plan. Patient was given strict ED return precautions.
[2025-01-12 11:50] LABS: Hematocrit 37.6 % (37.0-47.0); Hemoglobin 12.3 g/dL (12.2-16.2); Immature Granulocytes % 0.3 %; Mean Corpuscular HGB Conc 32.7 g/dL (31.8-35.4); Mean Corpuscular Hemoglobin 28.0 pg (27.0-31.2); Mean Corpuscular Volume 85.5 fl (81-99); Nucleated Red Blood Cells % 0 %; Platelet Count 279 K/mm3 (142-424); Red Blood Count 4.40 M/mm3 (4.20-5.40); Red Cell Distribution Width-SD 41.8 fL; White Blood Count 10.0 K/mm3 (4.8-10.8)
[2025-01-12] MEDS: MORPHINE 4MG/ML SYRINGE 4 MG IV (11:52)
[2025-01-12] MEDS: ONDANSETRON 4MG/2ML VIAL 4 MG IV (11:52)
[2025-01-12 11:54] LABS: Chloride 95 mmol/L (98-107); Sodium 137 mmol/L (136-145)
[2025-01-12 11:57] LABS: Alanine Aminotransferase 23 U/L (12-78); Alkaline Phosphatase 89 U/L (38-126); Aspartate Amino Transferase 30 U/L (14-36); Bilirubin,Total 0.4 mg/dl (0.2-1.3); Blood Urea Nitrogen 17 mg/dl (7-17); Calcium 8.9 mg/dl (8.4-10.2); Creatinine Clearance Estimated 75 mL/min (50-200); Creatinine,Serum 0.70 mg/dl (0.52-1.04); Estimated Glomerular Filt Rate 85 ml/min (>60); GFR (African American) 103 ML/MIN (>60); Glucose 116 mg/dl (74-100); INR 0.99 (0.9-1.1); Magnesium 1.2 mg/dl (1.6-2.3); Potassium 3.0 mmoL/L (3.5-5.1); Prothrombin Time 11.0 seconds (10.1-12.5); Total Protein,Serum 7.1 g/dl (6.3-8.2)
[2025-01-12] MEDS: ASPIRIN 325MG TABLET 325 MG PO (11:58)
[2025-01-12 12:06] LABS: NT Pro Brain Natriuretic Pep. 44.8 pg/mL (0-125)
[2025-01-12] MEDS: POTASSIUM CHLORIDE 20MEQ TAB 60 MEQ PO (12:10)
[2025-01-12] MEDS: MAGNESIUM SULFATE IN WATER 2 GM/50 ML PIGGYBACK IV (12:11)
[2025-01-12 12:13] LABS: Troponin I < 0.01 ng/ml (0.00-0.034)
--- NOTE | 2025-01-12 12:52 | PC.NURSE ---
Ambulated patient to bathroom where she was able to give us a urine. patient WAS PROVIDED A BLANKET.
[2025-01-12 13:01] LABS: Microscopic, Urine URINE MICROSCOPIC (MICROSCOPIC)
[2025-01-12 13:02] LABS: Bilirubin,Urine Negative (Negative); Color,Urine YELLOW (Yellow); Glucose,Urine (UA) Negative (Negative); Ketones,Urine Negative (Negative); Leukocyte Esterase,Urine 1+ (Negative); PH,Urine 6.0 (5.0-8.5); Protein,Urine Negative (Negative); Specific Gravity, Urine 1.015 (1.005-1.030); Urobilinogen,Urine 0.2 EU/dl (0.2)
[2025-01-12 13:16] LABS: RBC,Urine Occasional #/hpf (0-3)
[2025-01-12 13:17] LABS: Renal Epithelial Cells,Urine Occasional #/lpf (0)
[2025-01-12 14:17] VITALS: BP 118/71; PULSE 65; RESP 12; TEMP 36.7; O2SAT 96
[2025-01-12 14:31] LABS: Albumin Level 4.3 g/dl (3.5-5.0); Albumin/Globulin Ratio 1.5 (1.1-1.8); Anion Gap 15.0 mEq/L (5-15); Carbon Dioxide 30 mmol/L (22.0-30.0); Globulin 2.8 g/dL (1.3-3.2)
== END 2025-01-12 14:17 | disposition home or self-care (01) ==
PROVIDERS: Physician Assistant; Emergency Provider Student in an Organized Health Care Education/Training Program; PCP Internal Medicine Adolescent Medicine
DX: R07.89 Other chest pain (principal); E87.6 Hypokalemia; E83.42 Hypomagnesemia; I10 Essential (primary) hypertension; E11.9 Type 2 diabetes mellitus without complications; K21.9 Gastro-esophageal reflux disease without esophagitis
CPT/HCPCS: 71045; 80053; 81001; 83735; 83880; 84484; 85025; 85610; 87086; 93005; 96365; 96375; 99285; J2270; J2405; J3475

== ENCOUNTER 2025-01-15 10:43 | Outpatient (CLI) | payer BC, SELFPAY ==
[2025-01-15 12:11] LABS: Anion Gap 18.1 mEq/L (5-15); Blood Urea Nitrogen 14 mg/dl (7-17); Calcium 10.2 mg/dl (8.4-10.2); Carbon Dioxide 29 mmol/L (22.0-30.0); Chloride 96 mmol/L (98-107); Creatinine,Serum 0.80 mg/dl (0.52-1.04); Estimated Glomerular Filt Rate 73 ml/min (>60); GFR (African American) 88 ML/MIN (>60); Glucose 132 mg/dl (74-100); Magnesium 1.4 mg/dl (1.6-2.3); Potassium 4.1 mmoL/L (3.5-5.1); Sodium 139 mmol/L (136-145)
== END 2025-01-15 23:59 | disposition home or self-care (01) ==
PROVIDERS: PCP Physician Assistant; Visit Provider Internal Medicine Adolescent Medicine
DX: E87.6 Hypokalemia (principal); E83.42 Hypomagnesemia
CPT/HCPCS: 36415; 80048; 83735

== ENCOUNTER 2025-01-19 07:34 | Outpatient (CLI) | payer BC, SELFPAY ==
[2025-01-19 09:01] LABS: Chloride 98 mmol/L (98-107); Potassium 3.4 mmoL/L (3.5-5.1); Sodium 135 mmol/L (136-145)
[2025-01-19 09:04] LABS: Anion Gap 13.4 mEq/L (5-15); Blood Urea Nitrogen 16 mg/dl (7-17); Calcium 9.8 mg/dl (8.4-10.2); Carbon Dioxide 27 mmol/L (22.0-30.0); Creatinine,Serum 0.70 mg/dl (0.52-1.04); Estimated Glomerular Filt Rate 85 ml/min (>60); GFR (African American) 103 ML/MIN (>60); Glucose 141 mg/dl (74-100); Magnesium 1.3 mg/dl (1.6-2.3)
== END 2025-01-19 23:59 | disposition home or self-care (01) ==
LOC: LAB 07:38
PROVIDERS: PCP Physician Assistant; Visit Provider Physician Assistant
DX: E87.6 Hypokalemia (principal); E83.42 Hypomagnesemia
CPT/HCPCS: 36415; 80048; 83735